=== PATIENT | female | born 1985 | race Caucasian/White ===

== ENCOUNTER 2016-07-20 10:46 | Outpatient (CLI) | payer BC ==
[~2016-07-20] VITALS: Ht 152.4 cm; Wt 66.0 kg
--- NOTE | 2016-07-20 12:39 | DIAGNOSTIC IMAGING REPORT ---
Limited ultrasound LIMITED (US) CLINICAL HISTORY: dilated at 34 weeks TECHNIQUE: Ultrasound COMPARISON STUDY: None FINDINGS: Single, viable intrauterine . Placenta is posterior. Amniotic fluid and neck 14 cm. Position is cephalic. Maternal cervix is 2.2 cm. IMPRESSION: 1. Maternal cervix is closed and measures 2.2 cm maximum length. 2. Single, viable intrauterine in cephalic presentation. 3. Amniotic fluid index 14 cm Electronically signed by: Tom Robledo M.D. 07/20/2016 12:37 PM Dictated Date/Time: 07/20/2016 12:27 PM
[2016-07-20] MEDS ORDERED: LACTATED RINGER'S 1000ML 500 ML IV ONE (14:39)
[2016-07-20] MEDS ORDERED: TERBUTALINE SULFATE 1 MG/ML VIAL SQ STA (14:39)
[2016-07-20] MEDS ORDERED: BETAMETH SOD PHOS/ACETATE IA 6 MG/ML IM STA (14:39)
--- NOTE | 2016-07-20 14:45 | Progress Note ---
Progress Note Date of Service Jul 20, 2016. Progress Note Patient still having contractions every 4 minutes. Cervix still 1cm/thick/-2. T Cat 1. Will start IV hydration, steroids and Brethine.
[2016-07-20 15:45] VITALS: Ht 152.4 cm; Wt 66.0 kg
[2016-07-20] MEDS ORDERED: SERT50TA PO (15:49)
[2016-07-20] MEDS ORDERED: PREN1TAB29 (15:49)
[2016-07-20] MEDS: LACTATED RINGER'S 1000ML 1,000 ML IV SCH ×2 (16:05→17:02)
[2016-07-20] MEDS ORDERED: TERBUTALINE SULFATE 1 MG/ML VIAL SQ ONE (17:00)
--- NOTE | 2016-07-20 19:03 | Progress Note ---
Progress Note Date of Service Jul 20, 2016. Progress Note No further contractions after second dose of Brethine. No contractions on monitor. FHT Cat 1. Will discharge home. Follow up tomorrow for second dose of steroids. Patient to instructed to call our office in AM for follow up.
[2016-08-28] MEDS ORDERED: CLC100 PO (09:24)
== END 2016-07-20 19:23 | disposition home or self-care (01) ==
LOC: C.OPB 10:46 → C.LD 10:47 → C.OPB 19:23
PROVIDERS: ATTEND Obstetrics & Gynecology
DX: O62.9 Abnormality of forces of labor, unspecified (principal); Z3A.34 34 weeks gestation of pregnancy

== ENCOUNTER 2016-08-26 14:05 | Inpatient (IN) | payer BC ==
[~2016-08-26] VITALS: Ht 152.4 cm; Wt 68.0 kg
[~2016-08-26 14:05] MED LIST: PREN1TAB29; SERT50TA PO
[2016-08-26] MEDS ORDERED: LACTATED RINGER'S 1000ML 1,000 ML IV SCH ×2 (14:40→20:27)
[2016-08-26] MEDS ORDERED: LACTATED RINGER'S 1000ML 1,000 ML IV PRN (14:40)
[2016-08-26] MEDS ORDERED: ALBUTEROL HFA 8 GM INHALER INH PRN (15:00)
[2016-08-26] MEDS ORDERED: VANCOMYCIN INJ 1,000 MG in SODIUM CHLORIDE 0.9% 250ML 250 ML IV PRN ×2 (15:00→22:57)
[2016-08-26] MEDS ORDERED: VANCOMYCIN INJ 1,000 MG in SODIUM CHLORIDE 0.9% 250ML 250 ML IV ONE (15:00)
[2016-08-26 15:15] LABS: HEMATOCRIT 40.6 % (37-47); MEAN CELL VOLUME 85.8 fL (80-100); MEAN CORPUSCULAR HEMOGLOBIN 29.2 pg (25-34); MEAN PLATELET VOLUME 9.5 fL (7.4-10.4); PLATELET COUNT 175 K/uL (130-400); RED BLOOD COUNT 4.73 M/uL (4.2-5.4); WHITE BLOOD COUNT 11.06 K/uL (4.8-10.8)
--- NOTE | 2016-08-26 15:44 | HISTORY & PHYSICAL EXAMINATION ---
DATE OF ADMISSION: 08/26/2016 LABOR AND DELIVERY ADMISSION NOTE CHIEF COMPLAINT: Contractions. HISTORY OF PRESENT ILLNESS: The patient is a 31-year-old G2, P1-0-0-1 at 39 weeks and 3 days of gestation, who has been feeling contractions since last night. They got closer and regular since 11:00 a.m. this morning. She is very painful and asking for epidural for pain. She denies leakage of fluid or vaginal bleeding. She reports good movements. She denies any headache, change in her vision, nausea, vomiting, fever, chills, chest pain, or shortness of breath. She is being admitted for labor. Her has been uncomplicated except: 1. History of anxiety. She is on Zoloft and stable. 2. History of labor with her first and she delivered full term at 12 years ago. She had MFM referral in second trimester and her cervical length was normal. 3. Rh negative. She had RhoGAM at 28 weeks. 4. History of placenta previa in second trimester, which resolved with repeat ultrasound. 5. Gestational diabetes, GDMA1. Glucose under control with diet only. 6. GBS positive. PENICILLIN ALLERGIC. 7. History of asthma. She has been on Singulair every day. She has not used her inhaler during this . 8. History of chronic migraines. 9. History of spine fractures. PAST MEDICAL HISTORY: As above. PAST SURGICAL HISTORY: Arm surgery, wrist surgery for a broken arm, excision of lipoma in mid back, nasoseptal surgery, and sinus surgery. MEDICATIONS: vitamins, Benadryl 25 mg as needed for allergies, Singulair 10 mg daily, albuterol inhaler as needed, Symbicort inhaler as needed, Zoloft 50 mg daily, and vitamins with iron. ALLERGIES: PENICILLIN CAUSES EDEMA OF AIRWAY, FISH ALLERGY, LATEX ALLERGY AND SHELLFISH ALLERGY. SOCIAL HISTORY: The patient denies smoking, alcohol or drug use. GYNECOLOGIC HISTORY: The patient denies any history of STDs including chlamydia, gonorrhea, or herpes. She had full term spontaneous vaginal delivery in 2003. LABORATORY DATA: Her blood type is B negative, antibody screen negative, hepatitis B surface antigen negative, RPR nonreactive, rubella titer positive immune. GC chlamydia cultures were negative. Glucola was 213 mg per deciliter and 3-hour 219 mg/dl was deferred due to elevated 1-hour Glucola. GBS culture was positive on August 03. PHYSICAL EXAMINATION: GENERAL: The patient is alert and oriented x3. She is in moderate distress with contractions. VITAL SIGNS: Her blood pressure is 128/80, temperature 98, pulse 80, and respirations 18. CARDIOVASCULAR SYSTEM: S1 and S2, RRR. LUNGS: Clear to auscultation bilaterally. ABDOMEN: Soft, nontender, and gravid. Jorge Luis's 7 to 7-1/2 pounds. EXTREMITIES: Nontender. No edema. PELVIC: Cervix is 5 cm dilated, 70% effaced, -2, vertex. heart rate 140s, category 1 and tocometer contractions every 3-5 minutes. ASSESSMENT AND PLAN: The patient is a 31-year-old G2, P1-0-0-1 at 39 weeks and 3 days of gestation presenting in active labor with contractions. Vital signs stable, afebrile. heart rate reassuring. GBS positive. Plan is admit her, start IV fluids, epidural for pain and vancomycin for GBS and anticipate spontaneous vaginal delivery. MTDD
[2016-08-26] MEDS ORDERED: BUPIVACAINE 0.25% 30 ML VIAL ONE (15:53)
[2016-08-26] MEDS ORDERED: FENTANYL CITRATE INJ 50 MCG/1 ML 2 ML VIAL ONE (15:54)
[2016-08-26] MEDS ORDERED: FENTANYL 2MCG/ML ROPIV 1.25MG/ML 100ML BAG EPI ONE (15:54)
[2016-08-26] MEDS ORDERED: EpHEDrine SULFATE INJ 50 MG/ML AMP ONE (15:54)
[2016-08-26] MEDS ORDERED: LACTATED RINGER'S 1000ML 500 ML IV PRN ×2 (17:01→18:29)
[2016-08-26] MEDS ORDERED: NALOXONE HCL INJ 1 MG in SODIUM CHLORIDE 0.9% 1000ML 1,000 ML IV PRN (17:01)
[2016-08-26] MEDS ORDERED: NALOXONE HCL INJ 0.4 MG/1 ML VIAL/CARP IV PRN (17:15)
[2016-08-26] MEDS ORDERED: FENTANYL 2MCG/ML ROPIV 1.25MG/ML 100ML BAG EPI PRN ×2 (17:15→21:15)
[2016-08-26] MEDS ORDERED: EpHEDrine SULFATE INJ 50 MG/ML AMP IV PRN (17:15)
[2016-08-26] MEDS ORDERED: ONDANSETRON INJ 2 MG/ML 2 ML VIAL IV PRN (17:15)
[2016-08-26] MEDS ORDERED: NALBUPHINE HCL INJ 10 MG/ML AMP IV PRN (17:15)
[2016-08-26] MEDS ORDERED: DiphenhydrAMINE HCL 50 MG/ML VIAL IV PRN (17:15)
[2016-08-26 17:50] VITALS: Ht 152.4 cm; Wt 68.0 kg
[2016-08-26] MEDS ORDERED: OXYTOCIN 30 UNITS/500ML NSS IV ONE (17:51)
[2016-08-26] MEDS ORDERED: OXYTOCIN 30 UNITS/500ML NSS IV PRN ×2 (18:30→20:30)
[2016-08-26] MEDS ORDERED: HYDROCORTISONE ACETATE 25 MG SUPP PR PRN (20:30)
[2016-08-26] MEDS ORDERED: BENZOCAINE 20% AER SPR 82.5 GM CAN EXT PRN (20:30)
[2016-08-26] MEDS ORDERED: DIPHTHERIA/TETANUS/PERTUSSIS 0.5 ML SYR/VIAL IM. ONE (20:30)
[2016-08-26] MEDS ORDERED: SUPERCREAM 0.870 % 15GM JAR EXT PRN (20:30)
[2016-08-26] MEDS ORDERED: ACETAMINOPHEN/CODEINE 300/30MG TAB PO PRN ×2 (20:30)
[2016-08-26] MEDS ORDERED: LANOLIN OINT EXT PRN ×2 (20:30)
[2016-08-26] MEDS ORDERED: MEASLES, MUMPS & RUBELLA VIRUS VIAL SQ. ONE (20:30)
[2016-08-26] MEDS ORDERED: MISOPROSTOL 200 MCG TAB ONE (20:37)
--- NOTE | 2016-08-26 21:06 | Anesthesia Procedure Note ---
Anesthesia Epidural Removal Nt Date & Time August 26, 2016 at 21:06 Vital Signs Pain Intensity: 2 Notes Mental Status: alert / awake / arousable, participated in evaluation Nausea / Vomiting: adequately controlled Pain: adequately controlled Airway Patency, RR, SpO2: stable & adequate BP & HR: stable & adequate Hydration State: stable & adequate Neuraxial Anesthesia: was administered Anesthetic Complications: no major complications apparent, pt satisfied with anesthetic care Epidural: removed without complications, with tip intact
[2016-08-26] MEDS ORDERED: MONTELUKAST SOD 10 MG TAB PO SCH (22:00)
[2016-08-26] MEDS ORDERED: SERTRALINE HCL 50 MG TAB PO SCH (22:00)
[2016-08-26 23:45] VITALS: BP 118/76; PULSE 99; TEMP 37.6
[2016-08-27] MEDS: IBUPROFEN 600 MG TAB PO PRN ×3 (01:56→19:35)
[2016-08-27 04:15] VITALS: BP 105/67; PULSE 82; TEMP 36.5
[2016-08-27 06:54] LABS: HEMATOCRIT 27.3 % (37-47)
[2016-08-27 07:15] VITALS: BP 109/66; PULSE 81; TEMP 36.8
[2016-08-27] MEDS: FERROUS SULFATE 325 MG TAB PO SCH (08:05)
[2016-08-27] MEDS: DOCUSATE SODIUM 100 MG CAP PO SCH ×2 (08:05→19:35)
[2016-08-27] MEDS: PRENATAL VITAMIN TAB PO SCH (08:05)
[2016-08-27] MEDS: ACETAMINOPHEN 325 MG TAB PO PRN (08:11)
--- NOTE | 2016-08-27 08:58 | DELIVERY SUMMARY ---
DATE OF OPERATION: 08/26/2016 TIME OF DELIVERY OF BABY: 19:55 p.m. TIME OF DELIVERY OF PLACENTA: 20:32 p.m. DETAILS OF DELIVERY: The patient was found to be fully dilated and desired to push. She pushed for 2 contractions and delivered the head without difficulty. Shoulders were delivered with the same push and baby was handed off to the mother, where mouth and nose were suctioned. Cord was clamped x2 and cut at 1 minute delay, it was 3 vessels cord. Cord blood was obtained. Vagina and perineum were checked for lacerations. There was a second degree perineal laceration at the posterior fourchette which was confirmed with rectal exam. Gloves were changed and perineal body muscle around the external sphincter was reapproximated with 2-0 Vicryl with gflswe-td-euhby stitches x2. The vaginal mucosa and bulbocavernosus muscles were reapproximated with 2-0 Vicryl in running fashion and skin in a subcuticular fashion. Good hemostasis was achieved. There was also a first degree periclitoral laceration where the labial mucosa was oozing minimal blood A maxwell catheter was inserted to the bladder. It was repaired with 3-0 Vicryl on an SH needle in a continuous fashion. Good hemostasis was achieved and there was superficial left vaginal wall laceration which was also repaired with 3-0 Vicryl with iibyny-wx-rrisz stitch. Good hemostasis was achieved, and then we awaited for the placenta for about half an hour, started Pitocin IV running, and then placenta was found to be in lower uterine segment. It was delivered spontaneously with the patient pushing as intact and complete at 08:32 p.m. The uterus was explored and found to be empty. Lower segment was cleared of all clots and debris. Fundus was firm. There was a bright red bleeding from vagina. Two Zhu retractors were placed in the vagina. Cervix was visualized and grasped with ring forceps. It was checked circumferentially to be intact with no lacerations , and then patient was given IV Pitocin bolus as well as 800 mcg of misoprostol in the rectum. Then bleeding slowed down. EBL was 300. The gloves were changed. Rest of the vagina and perineum checked for lacerations, some of the repair from prior were oozing on the periclitoral as well as the perineum. They were controlled with egohzh-wd-uewth stitches. Excellent hemostasis was achieved. she tolerated the procedure well. Sponge, lap, needle and instruments were counts were correct x2. The baby was a viable male , Apgars 7/9 and weight is 2916 gr. The mother had temperature after all the procedure was complete. She was on Vancomycin due to GBS positive status. Decision was made to continue with antibiotic due GBS status as well as long 3rd stage of labor and repair. I was present during whole procedure. I attest to the content of the Intraoperative Record and any orders documented therein. Any exceptions are noted below. MTDD
[2016-08-27 11:50] VITALS: BP 105/66; PULSE 77; TEMP 36.7
--- NOTE | 2016-08-27 12:08 | OB/GYN Progress Note ---
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 Subjective conversation w/ patient, physical exam Ambulation: ambulating normally Voiding: no voiding problems Passing Gas: Yes Diet Tolerance: Regular Diet Lochia: Small Feeding Type: Breast Feeding Objective Vital Signs Date Time Temp Pulse Resp B/P Pulse Ox O2 Delivery O2 Flow Rate FiO2 08/27/16 07:15 36.8 81 20 109/66 Room Air 08/27/16 07:15 Room Air 08/27/16 04:15 36.5 82 18 105/67 Room Air 08/27/16 00:40 Room Air 08/26/16 23:45 37.6 99 18 118/76 Room Air Physical Exam General Appearance: WELL-APPEARING, NO APPARENT DISTRESS Abdomen: non tender, soft Fundus: Firm Extremities: non-tender, normal inspection, no pedal edema Laboratory Results Last 24 Hours Test 08/26/16 15:01 08/27/16 06:08 White Blood Count 11.06 K/uL Red Blood Count 4.73 M/uL Hemoglobin 13.8 g/dL 9.1 g/dL Hematocrit 40.6 % 27.3 % Mean Corpuscular Volume 85.8 fL Mean Corpuscular Hemoglobin 29.2 pg Mean Corpuscular Hemoglobin Concent 34.0 g/dl RDW Standard Deviation 45.2 fL RDW Coefficient of Variation 14.3 % Platelet Count 175 K/uL Mean Platelet Volume 9.5 fL Assessment and Plan Post- Day Number: 1 Continue Routine Care: tent d/c in AM
[2016-08-27 17:00] VITALS: BP 120/76; PULSE 76; TEMP 36.7
[2016-08-27 19:25] VITALS: BP 110/70; PULSE 88; TEMP 36.6
[2016-08-27] MEDS ORDERED: BISACODYL 5 MG TABEC PO SCH (20:00)
[2016-08-28 00:44] VITALS: BP 116/78; PULSE 75; TEMP 36.6
[2016-08-28] MEDS ORDERED: BISACODYL 10 MG SUPP PR PRN (07:00)
[2016-08-28 07:10] LABS: HEMATOCRIT 30.3 % (37-47); MEAN CELL VOLUME 86.1 fL (80-100); MEAN CORPUSCULAR HEMOGLOBIN 28.1 pg (25-34); MEAN CORPUSCULAR HGB CONC 32.7 g/dl (32-36); MEAN PLATELET VOLUME 8.7 fL (7.4-10.4); PLATELET COUNT 188 K/uL (130-400); RED BLOOD COUNT 3.52 M/uL (4.2-5.4)
[2016-08-28] MEDS: PRENATAL VITAMIN TAB PO SCH (07:34)
[2016-08-28] MEDS: FERROUS SULFATE 325 MG TAB PO SCH (07:34)
[2016-08-28] MEDS: DOCUSATE SODIUM 100 MG CAP PO SCH (07:34)
[2016-08-28] MEDS: IBUPROFEN 600 MG TAB PO PRN (07:35)
[2016-08-28 07:40] VITALS: BP 124/85; PULSE 83; TEMP 36.4; O2SAT 99
--- NOTE | 2016-08-28 09:22 | OB/GYN Progress Note ---
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 Patient is seen and examined. She feels well, no complaints, just tired Ambulating without dizziness Voiding without difficulty Tolerating regular diet with out N&V Flatus+, BM small Bleeding is minimal No fever/ chills/ CP/ SOB/ N&V/ Leg pain Breast feeding without problems Discussed contraception with patient in details. Abstinence for 6 weeks, BCP, progestin only pills, Nexplanon, IUD's, Mirena and Paragard. She likes to decide at 6 weeks pp visit She was continued on Vanco after delivery due to fever, retained placenta, long vaginal repair, maxwell in. Explained all above and she understands and appreciated. Date Time Temp Pulse Resp B/P Pulse Ox O2 Delivery O2 Flow Rate FiO2 08/28/16 07:40 36.4 83 16 124/85 99 Room Air 08/28/16 00:46 Room Air 08/28/16 00:44 36.6 75 116/78 Room Air 08/27/16 19:25 36.6 88 18 110/70 Room Air 08/27/16 17:00 36.7 76 18 120/76 Room Air 08/27/16 17:00 Room Air 08/27/16 11:50 36.7 77 20 105/66 Room Air Last 24 Hours Test 08/28/16 07:00 White Blood Count 12.40 K/uL Red Blood Count 3.52 M/uL Hemoglobin 9.9 g/dL Hematocrit 30.3 % Mean Corpuscular Volume 86.1 fL Mean Corpuscular Hemoglobin 28.1 pg Mean Corpuscular Hemoglobin Concent 32.7 g/dl RDW Standard Deviation 45.6 fL RDW Coefficient of Variation 14.7 % Platelet Count 188 K/uL Mean Platelet Volume 8.7 fL PE: General: Alert, orientedx3, NAD Abd: soft, NT, fundus firm, below Umbilicus Perineum intact, Lochia rubra minimal Ext; NT, no edema AP: 31 yo s/p , ppd# 2 VSS Afebrile doing well GBS+ Continue routine care All questions were answered D/C home with baby
[2016-08-28] MEDS ORDERED: CLC100 PO (09:24)
--- NOTE | 2016-08-28 09:28 | Discharge Instructions ---
Discharge Instructions Date of Service August 28, 2016. Admission Reason for Admission: R/O Labor Discharge Discharge Diagnosis / Problem: Discharge Goals Goal(s): Routine recovery after delivery Medications Continue Dispensed Medications: supercream, lansinoh Activity Recommendations Activity Limitations: as noted below Lifting Limitations: gradually increase as tolerated Exercise/Sports Limitations: until after follow-up appointment May Resume Sexual Activity: after follow-up appointment Shower/Bathe: no limitations Driving or Machine Use: ACTIVITY RECOMMENDATIONS: * Gradual return to full activity over the next 2-3 weeks. * No lifting - nothing heavier than baby over the next 2-3 weeks. * Do not engage in vigorous exercise, sexual activity or sports until cleared by your physician. * Do not drive or operate any motorized equipment until cleared by your physician. * You may shower/bathe daily. BREAST CARE: If you are not breast feeding: * Wear a supportive bra 24 hours a day for one to two weeks. * Avoid stimulating your breasts and nipples as much as possible during the first few weeks after delivery. * When taking a shower, have the warm water hit your back, not breasts. * When your breasts feel full, apply ice packs. Usually three to four times a day helps ease the discomfort. * Take a mild pain medication (Tylenol/Motrin) when you are uncomfortable. If breast feeding: * Use breast milk to lubricate nipples. Lansinoh cream may be used for sore nipples. You do not need to remove cream prior to breast feeding. If using a different brand of cream, check the label for directions regarding removal of cream prior to nursing. * Wear a supportive bra. * If having problems with breasts or breast feeding, call a php consultant or your health care provider. EPISIOTOMY CARE: After delivery, if you have an episiotomy (stitches), the following steps will ease discomfort and aid healing. * For the first 24 hours after delivery, place ice packs next to your episiotomy to help reduce swelling. * After the first 24 hour-period, sitz baths, either portable or in the tub, are suggested. A shower with a shower arm sprayed over the episiotomy may be comforting. * [place]ette care should be done after each voiding and bowel movement. Squirt warm water from a plastic bottle over the perineum (region of the body between the anus and urinary opening) and pat dry. * Use Dermoplast to ease discomfort. Shake container. [place] directly over the episiotomy. * Place a Tucks on a clean sanitary pad next to your episiotomy. OVER THE COUNTER MEDICATION: * For discomfort or pain, you may use Acetaminophen (Tylenol), Ibuprofen (Advil ), or Naproxen (Aleve) following the package directions. * For constipation you may use Colace following the package directions. SPECIAL CARE INSTRUCTIONS: When you are discharged from the hospital, it is important for you to follow the instructions listed below: * During the first week at home, you should be able to care for yourself and your baby. In addition, the usual light household activities are encouraged. * Limit your activities to the way you feel. Do not try to clean the house or move furniture. Be sensible. * If you actively engage in sports and have done so up until the time of your delivery, you may resume these activities as soon as you feel able. This may take up to one month or even longer. Use good judgment. * Continue to take your vitamins for at least six weeks after the of your baby. * Your diet need not be limited unless you were on a special diet before your delivery. Breast-feeding mothers need around 2500 calories per day and at least 64-80 ounces of fluid per day (8 to 10 glasses). * You should eat foods from the four major food groups. Crash diets or fad diets are to be avoided. Eating lean meats, fresh fruits and vegetables, low-fat dairy products, high fiber foods and a regular exercise program, will help you get back to your pre- weight without putting your health at risk. * Constipation is sometimes a problem after delivery. Take a mild laxative as needed. If breast feeding, Milk of Magnesia is acceptable to use. You may use a suppository or Fleets enema if no episiotomy. * A daily shower or tub bath is suggested. Be sure to thoroughly and gently dry the perineum. * A bloody vaginal discharge will usually continue until around four weeks post . A small amount of bleeding may continue for as long as six weeks. Vaginal discharge changes from the bright red bleeding after delivery to pink then brownish and finally yellowish-pink before becoming white and disappearing. * Bleeding may increase with activity. Your first period may come in 4-8 weeks. If you are breast feeding, your period may be delayed even longer. * [place] (sex) can begin whenever both you and your partner feel comfortable and do not have any form of genital infection. It is recommended that you wait until after your return appointment and discuss with your physician. If you have questions, please talk to your health care practitioner. A condom should be used to prevent infection and . * Foreplay, gentle intercourse and lubrication is very important the first several times to prevent pain. A water-based lubricant such as K-Y jelly or Astroglide may be used. * Tampons may be used six weeks after delivery. * Douching should be avoided for 6 weeks after delivery. * If you have RH negative blood and your baby is RH positive, you will receive RHOGAM by injection prior to discharge. The nurse will give you a card to keep with you that has the date and place that you received RHOGAM after delivery. * During your care, you had a Rubella screen done to check for the presence of rubella antibodies in your blood. If your test was negative, you will receive a Rubella vaccine prior to discharge. This vaccine may cause a fever, soreness at the injection site and flu-like symptoms. If these symptoms persist, notify your health care practitioner. is not advised for three months after a Rubella vaccine. There is a higher chance of having a baby with defects if conceived within three months of getting the vaccine. * If you were discharged 24 hours from delivery or before 48 hours: Visiting nurses will come to your home 48 hours after discharge to assess you and your baby. The visiting nurse will meet with you while you are in the hospital to arrange a time and get directions to your home. * Verbalizes understanding of car seat law as reviewed with patient nursing. * Car Seat hand-out given and reviewed with patient by nursing. * Shaken baby information reviewed with patient by nursing. Call you doctor if: * Heavy bleeding (saturating several pads an hour) or passing clots the size of your fist. * A fever >101 degrees F (38.3 degrees C) on two occasions four hours apart and/or chills. * Unusual pain in the pelvic or vaginal areas. * "Baby Blues" lasting longer than two weeks. If you have any questions or concerns, call your health care practitioner at . FOLLOW-UP VISIT: * Please call the office at to schedule a 6 week examination. It is important you keep this appointment. * It is important for you to make arrangements for either yearly or twice yearly check-ups thereafter. . Current Hospital Diet Patient's current hospital diet: Regular OB Diet Discharge Diet Recommended Diet: Regular Diet Pending Studies Studies pending at discharge: no Medical Emergencies . Who to Call and When: Medical Emergencies: If at any time you feel your situation is an emergency, please call 911 immediately. . Non-Emergent Contact Non-Emergency issues call your: Surgeon Call Non-Emergent contact if: you have a fever, temperature is above 100.5, your pain is not controlled, your pain is unusual for you, wound has increased drainage, wound has increased pain . . "Provider Documentation" section prepared by Syed Goyal. . VTE Core Measure Inpt VTE Proph given/why not?: Treatment not indicated
[2016-08-28] MEDS: ACETAMINOPHEN 325 MG TAB PO PRN (09:29)
[2016-08-28] MEDS ORDERED: MAGNESIUM HYDROXIDE SUSP 30 ML UDC PO ONE (09:30)
[2016-08-28 16:00] VITALS: BP 111/69; PULSE 84; TEMP 36.7
[2016-08-28 18:29] VITALS: BP_DIAS 69; PULSE 84; TEMP 36.7
== END 2016-08-28 18:15 | disposition home or self-care (01) | DRG 774 ==
LOC: C.OPB 14:05 → C.LD 14:05 → C.OPB 14:41 → C.LD 14:41 → C.OBG 23:35 → EDSTATUS 08-30 14:15
PROVIDERS: ADMIT Obstetrics & Gynecology; ATTEND Obstetrics & Gynecology
PROC: 10E0XZZ Delivery of Products of Conception, External Approach (ICD-10-PCS; principal; 2016-08-26)
PROC: 0UQMXZZ Repair Vulva, External Approach (ICD-10-PCS; principal; 2016-08-26)
PROC: 0KQM0ZZ Repair Perineum Muscle, Open Approach (ICD-10-PCS; principal; 2016-08-26)
DX: O24.420 Gestational diabetes mellitus in childbirth, diet controlled (principal); O67.9 Intrapartum hemorrhage, unspecified; O86.4 Pyrexia of unknown origin following delivery; O99.354 Diseases of the nervous system complicating childbirth; G43.909 Migraine, unspecified, not intractable, without status migrainosus; O70.1 Second degree perineal laceration during delivery; O99.344 Other mental disorders complicating childbirth; F41.9 Anxiety disorder, unspecified; O99.824 Streptococcus B carrier state complicating childbirth; O99.52 Diseases of the respiratory system complicating childbirth; J45.909 Unspecified asthma, uncomplicated; Z37.0 Single live birth; Z88.0 Allergy status to penicillin; Z3A.39 39 weeks gestation of pregnancy; Z91.040 Latex allergy status; Z67.91 Unspecified blood type, Rh negative; Z79.51 Long term (current) use of inhaled steroids; Z79.899 Other long term (current) drug therapy

== ENCOUNTER 2017-06-06 19:05 | Emergency (ER) | payer BC, OTHER ==
[~2017-06-06] VITALS: Ht 152.4 cm; Wt 58.6 kg
[~2017-06-06 19:05] MED LIST changes: +CLC100 PO
[2017-06-06 19:12] VITALS: TEMP 37; Ht 152.4 cm; Wt 58.6 kg
[2017-06-06] MEDS ORDERED: SODIUM CHLORIDE 0.9% 1000ML 1,000 ML IV STA (19:32)
[2017-06-06] MEDS ORDERED: ONDANSETRON INJ 2 MG/ML 2 ML VIAL IV STA (19:32)
--- NOTE | 2017-06-06 19:48 | EMERGENCY ROOM VISIT NOTE ---
History Report prepared by Sravanthi: Benita Cat Under the Supervision of: Dr. Jonathan Crockett M.D. First contact with patient: 19:15 Chief Complaint: HYPERGLYCEMIA Stated Complaint: BLOOD SUGAR OVER 400. VERY THIRSTY ALL THE TIME Nursing Triage Summary: reports BSG over 400. Not currently being treated for DM. States was gestational diabetic 1 yr ago but resolved. mother and sister diabetic. has had excessive thirst and urination past few days. History of Present Illness The patient is a 32 year old female who presents to the Emergency Room with complaints of increasing blood sugar beginning this evening around 5pm, two and a half hours ago. The patient took her blood sugar at 6 pm, an hour and a half ago, and it was 406. She then took it again and it was 415. Upon arrival to the ED, the patient's blood sugar was 467. The patient last ate a large meal of chicken, gravy, mushrooms and rice with vanilla cake and peanut butter icing around 5pm. She reports some nausea but denies any pain. She denies any chance of . The patient has a family history of type one diabetes. The patient has a history tubal ligation, anxiety, and gestational diabetes. Source of History: patient Onset: 2 and a half hours ago Position: other (generalized) Quality: other (elevated blood sugar) Timing: worsening Associated Symptoms: + nausea Review of Systems See HPI for pertinent positives and negatives. A total of ten systems were reviewed and were otherwise negative. Past Medical & Surgical Medical Problems: (1) contractions (2) Uterine contractions at greater than 20 weeks of gestation Family History Diabetes mellitus Social History Smoking Status: Never Smoker Marital Status: Housing Status: lives with family Current/Historical Medications Scheduled Sertraline (Zoloft), 75 MG PO HS Allergies Coded Allergies: Latex (Verified Allergy, Intermediate, rash, swelling , redness, itchy, 06/06/17) Penicillins (Verified Allergy, Intermediate, HIVES, 06/06/17) Shellfish (Verified Allergy, Intermediate, HIVES, 06/06/17) Ciprofloxacin (Unverified Allergy, Unknown, HEAD PRESSURE, 06/06/17) Dust (Verified Allergy, Unknown, HIVES, 06/06/17) Molds and Smuts (Verified Allergy, Unknown, HIVES, 06/06/17) Physical Exam Vital Signs Date Time Temp Pulse Resp B/P (MAP) Pulse Ox O2 Delivery O2 Flow Rate FiO2 06/06/17 22:42 77 16 122/68 97 06/06/17 20:50 73 18 104/54 98 Room Air 06/06/17 19:12 37.0 79 18 127/83 97 Room Air Physical Exam Physical Exam GENERAL: She is oriented to person, place, and time. She appears well- developed and well-nourished. She does not appear distressed. ____ HENT: Exam performed. Head: Normocephalic and atraumatic. Right Ear: External ear normal. No mastoid tenderness. Left Ear: External ear normal. No mastoid tenderness. Mouth/Throat: The oropharynx is clear and moist. No trismus in the jaw. No dental abscesses or uvula swelling. No oropharyngeal exudate or tonsillar abscesses. ____ EYES: Conjunctivae and EOM are normal. Pupils are equal, round, and reactive to light. Right eye exhibits no discharge. Left eye exhibits no discharge. No scleral icterus. ____ NECK: Normal range of motion. Neck supple. No JVD present. No spinous process tenderness present. No carotid bruit present. No rigidity. No tracheal deviation and normal range of motion present. No Brudzinski's sign and no Kernig 's sign noted. ____ CV: Normal rate, regular rhythm, normal heart sounds and intact distal pulses. There is no peripheral edema. Palpable radial pulses bue. ____ PULM/CHEST: Effort normal and breath sounds normal. No respiratory distress. No stridor. She has no wheezes. She has no rales. Chest Wall: She exhibits no tenderness. ____ ABD: The abdomen is soft. Bowel sounds are normal. She has no distension. No mass is present. There is no tenderness. There is no rebound, no guarding, no Suarez's sign and no tenderness at McBurney's point. Rovsig negative MUSC/SKEL: Normal range of motion. There is no peripheral edema, tenderness or deformity. LYMPH: No cervical adenopathy. ____ NEURO: She is alert and oriented to person, place, and time. She has normal strength. No cranial nerve deficit or sensory deficit. Coordination and gait normal. GCS eye subscore is 4. GCS verbal subscore is 5. GCS motor subscore is 6. Cerebellar tests wnl. ____ SKIN: Skin is warm and dry. She is not diaphoretic. ____ PSYCH: She has a normal mood and affect. Her behavior is normal. Judgment and thought content normal. ____ Medical Decision & Procedures Laboratory Results 06/06/17 19:47 Test 06/06/17 19:19 06/06/17 19:47 Urine Color YELLOW Urine Appearance CLEAR (CLEAR) Urine pH 7.0 (4.5-7.5) Urine Specific [place] 1.042 (1.000-1.030) Urine Protein NEG (NEG) Urine Glucose (UA) 3+ (NEG) Urine Ketones NEG (NEG) Urine Occult Blood NEG (NEG) Urine Nitrite NEG (NEG) Urine Bilirubin NEG (NEG) Urine Urobilinogen NEG (NEG) Urine Leukocyte Esterase NEG (NEG) Urine WBC (Auto) 5-10 /hpf (0-5) Urine RBC (Auto) 0-4 /hpf (0-4) Urine Hyaline Casts (Auto) 0 /lpf (0-5) Urine Epithelial Cells (Auto) 20-30 /lpf (0-5) Urine Bacteria (Auto) NEG (NEG) Urine Test NEG (NEG) Anion Gap 5.0 mmol/L (3-11) Est Creatinine Clear Calc Drug Dose 62.8 ml/min Estimated GFR () 83.3 Estimated GFR (Non- 71.9 BUN/Creatinine Ratio 7.8 (10-20) Calcium Level 8.7 mg/dl (8.5-10.1) Beta-Hydroxybutyric Acid 1.24 mg/dL (0.2-2.81) Laboratory results reviewed by me Medications Administered Medications (Trade) Dose Ordered Sig/Filipe Route Start Time Stop Time Status Last Admin Dose Admin Sodium Chloride 1,000 ml @ 999 mls/hr Q1H1M STAT IV 06/06/17 19:32 06/06/17 20:32 DC 06/06/17 20:02 999 MLS/HR Ondansetron HCl (Zofran Inj) 4 mg NOW STAT IV 06/06/17 19:32 06/06/17 19:34 DC 06/06/17 20:02 4 MG ED Course 1930: The patient was evaluated in room B9. A complete history and physical exam was performed. 1931: Ordered Zofran Inj 4 mg IV, Sodium Chloride 1000 ml @ 999 mls/hr IV. 2157: Repeat vitals stable, serial abdominal exam revealed no pain on palpation , blood sugar improved with fluids. The patient was offered more fluids but she denied and states she wants to go home. The patient was advised to avoid food with high sugar content like cake, as she ate earlier today. The patient agrees to follow up with her PCP. 2200: I reevaluated the patient. Discussed results and discharge instructions: She verbalized understanding and agreement. The patient is ready for discharge. DISCHARGE - Plan of care discussed with family and questions answered. The family was given both verbal and printed discharge instructions. The family verbalized understanding and ability to comply. The family is to seek outpatient follow up as noted in the discharge instructions. The family verbalized understanding and ability to comply. The family is discharged in stable condition. The family was instructed to return for worsening symptoms. Medical Decision serial abdominal exam revealed no pain on palpation, blood sugar improved with fluids. The patient was offered more fluids but she denied and states she wants to go home. The patient was advised to avoid food with high sugar content like cake, as she ate earlier today. The patient agrees to follow up with her PCP. Medication Reconcilliation Current Medication List: was personally reviewed by me Blood Pressure Screening Patient's blood pressure: Normal blood pressure Impression Primary Impression: Hyperglycemia Scribe Attestation The scribe's documentation has been prepared under my direction and personally reviewed by me in its entirety. I confirm that the note above accurately reflects all work, treatment, procedures, and medical decision making performed by me. The chart was completed utilizing [employer] voice recognition software. Grammatical errors, random word insertions, pronoun errors, and incomplete sentences are an occasional consequence of this system due to software limitations, ambient noise, and hardware issues. Any formal questions or concerns about the content, text, or information contained within the body of this dictation should be directly addressed to the physician for clarification. Departure Information Dispostion Home / Self-Care Referrals Jean Marie Drake M.D. (PCP) Forms HOME CARE DOCUMENTATION FORM, IMPORTANT VISIT INFORMATION, WORK / SCHOOL INSTRUCTIONS Patient Instructions Hyperglycemia, Hyperglycemia Steps, My [facility] Additional Instructions Avoid eating foods with high amounts of sugar such as desserts like cake. Return to the emergency department if he developed fever greater than 100.4, blood in her vomit.
[2017-06-06 20:18] LABS: CALCIUM 8.7 mg/dl (8.5-10.1); CREATININE 1.03 mg/dl (0.60-1.20); POTASSIUM 4.1 mmol/L (3.5-5.1)
[2017-06-06 22:42] VITALS: BP 122/68; PULSE 77; O2SAT 97
== END 2017-06-06 22:43 | disposition home or self-care (01) ==
LOC: C.EDB 19:05
DX: R73.9 Hyperglycemia, unspecified (principal); F41.9 Anxiety disorder, unspecified; Z98.51 Tubal ligation status; Z86.32 Personal history of gestational diabetes; Z87.51 Personal history of pre-term labor; Z83.3 Family history of diabetes mellitus; Z91.040 Latex allergy status; Z88.0 Allergy status to penicillin; Z91.013 Allergy to seafood; Z88.1 Allergy status to other antibiotic agents; Z91.048 Other nonmedicinal substance allergy status

== ENCOUNTER 2023-02-12 19:03 | Inpatient (IN) ==
[2023-02-12 20:00] LABS: Basophils # (auto) 0.05 K/uL (0.00-0.20); Basophils % (auto) 0.3 %; Eosinophils # (auto) 0.09 K/uL (0.00-0.50); Eosinophils % (auto) 0.6 %; Hematocrit (blood only) 42.9 % (37.0-47.0); Hemoglobin 14.3 g/dl (12.0-16.0); Immature Granulocytes # (auto) 0.27 K/uL (0.01-0.20); Immature Granulocytes % (auto) 1.8 %; Lymphocytes # (auto) 1.71 K/uL (1.20-3.40); Lymphocytes % (auto) 11.6 %; Mean Corpuscular Hemoglobin 27.8 pg (25.0-34.0); Mean Corpuscular Hgb Conc 33.3 g/dL (32.0-36.0); Mean Corpuscular Volume 83.5 fL (80.0-100.0); Mean Platelet Volume 9.2 fL (9.4-12.4); Monocytes # (auto) 0.39 K/uL (0.11-0.59); Monocytes % (auto) 2.6 %; Neutrophils # (auto) 12.23 K/uL (1.40-6.50); Neutrophils % (auto) 83.1 %; Platelet Count 377 K/uL (130-400); RDW Coefficient of Variation 13.1 % (11.5-14.5); Red Blood Count 5.14 M/uL (4.20-5.40); White Blood Count 14.74 K/ul (4.8-10.8)
[2023-02-12] MEDS ORDERED: ONDANSETRON 4 MG OD TAB PO PRN (20:01)
[2023-02-12 20:34] LABS: Albumin Globulin Ratio 1.3 (0.9-2); Albumin Level 4.4 gm/dl (3.4-5.0); Bilirubin,Total 0.5 mg/dl (0.2-1.0); Calcium 9.7 mg/dl (8.6-10.3); Creatinine Clr Calc Pharmacy 82.9 ml/min; Est GFR (African American) 114.3 ml/min; Est GFR (Non-African American) 98.6 ml/min; Globulin 3.5 gm/dl (2.5-4.0); Potassium 3.9 mmol/L (3.5-5.1); Total Protein 7.9 gm/dl (6.0-8.3)
--- NOTE | 2023-02-12 23:37 | Emergency Department Note ---
Impression & Plan Dental abscess, Diabetes mellitus type 1 ED Provider Note CHIEF COMPLAINT: Dental pain HISTORY OF PRESENTING ILLNESS: This 37-year-old female patient presents to the emergency department with her for evaluation of dental pain on the right side as well as right-sided facial swelling. On 01/17/23 she started with dental pain that felt like an abscessed tooth. She had an appointment with her dentist, but it had to be cancelled because the dentist's went into labor. She then saw her PCP on 01/22/23 and she was started on Clindamycin. She saw the dentist on 01/25/23 that confirmed an abscess and that she would need a root canal. She had an appointment with the utility tender carding on 02/05/23 and he did the root canals, but there was only a small infection at that time. However, by 02/07/23 she had developed a lot more pain. She called the utility tender carding on 02/08/23 and was started on a higher dose of oral clindamycin. She started with facial swelling and increased pain again on 02/09/23 and went back to the utility tender carding who said it was too difficult to drain at that time and she was started on a medrol dose bladimir. The steroid helped a little for the first day, but then got worse again. She was advised to stop all NSAIDs with the steroids and she was started on Vicodin. Today the symptoms got worse and she went back to the utility tender carding who drained the abscess, but she is still having continued pain, facial swelling, and dysregulation of her blood sugars. She is a Type I diabetic and has a Dexcom in place. Her blood sugars keep getting very high and then dropping pretty quickly. She was referred to the emergency department for IV Rocephin since she has been on oral clindamycin at home without improvement. She rates her discomfort as 7/10. She has been seeing Dr. Powell of [facility]. REVIEW OF SYSTEMS: See HPI for pertinent positives and pertinent negatives. ALLERGIES: Latex, PCN, shellfish, Cipro, Mold, Dust - Has had IV contrast in the past with no problems MEDICATIONS: See below PAST MEDICAL HISTORY: See below PHYSICAL EXAM: VITALS: Vitals are noted on the nurse's note and reviewed by myself. GENERAL: Non toxic, no acute distress, non-diaphoretic. SKIN: The patient has edema and mild erythema to the right side of the face worse in the zygomatic area. No fluctuance, pointing, or discharge. No lymphatic streaking. Capillary refill <2 sec. EYES: PERRLA. EOMI without pain. Conjunctivae without injection, sclerae without icterus. NOSE: Patent without discharge. MOUTH: The patient has edema of the right upper gumline with ecchymosis in the area of the previous abscess drainage. There is no obvious fluctuance to drain at this time. No active discharge. Mucous membranes moist. Uvula midline. Airway patent. NECK: Supple without nuchal rigidity. Positive anterior cervical lymphadenopathy worse on the right. HEART: Regular rate and rhythm without murmurs gallops or rubs. LUNGS: Clear to auscultation bilaterally without wheezes, rales or rhonchi. No retractions or accessory muscle use. NEURO: Patient was alert and oriented. Normal sensation to light and sharp touch of the face. No focal neurological deficits. DIFFERENTIAL DIAGNOSIS: Differential diagnosis includes dental caries, periapical abscess, facial cellulitis, facial abscess, Mic's angina, pharyngitis, referred pain, sepsis, bacteremia, among others. ED COURSE AND MEDICAL DECISION MAKING: MONITOR: Continuous monitoring tech: Order was placed for continuous monitoring tech. Patient was placed on the monitoring tech and continuous pulse ox. Patient was noted to be in normal sinus rhythm at an initial rate of 90 bpm per my interpretation. EKG: EKG was interpreted by myself as normal sinus rhythm at 89 bpm with no acute ST or T wave changes and no significant changes compared to her previous EKG.. MEDICATIONS GIVEN: Patient was given Zofran 4 mg ODT in triage, but vomited this up immediately per patient. She was given Toradol 15 mg IV and Zofran 4 mg IV for pain. An order for Reglan 10 mg IV was placed due to continued nausea, but then the patient declined the medication because her symptoms improved. The patient was given Rocephin 2 g IV. She was also started on D5 normal saline solution at 125 mL/h. INTERPRETATION OF LABS: I interpreted the labs with full lab results as below in the lab section of this note. White blood cell count elevated at 14.74. Hemoglobin normal at 14.3. Platelet count normal at 377. CMP was essentially normal other than a glucose of 308. Lactate was normal. Blood cultures are pending. The patient's Dexcom showed her blood sugars drop down into the 70s. Since she is unable to eat or drink until CT scan results are obtained, she was started on D5 W normal saline solution to help normalize her blood sugars. Her blood sugars ranged from 120 to 179 while in the emergency department. INTERPRETATION OF IMAGING: Imaging studies were interpreted by myself and read by radiology as per the imaging section of this note. CT scan of the soft tissue neck with IV contrast showed findings concerning for periosteal abscess over the right maxilla adjacent to tooth #7 which demonstrates periapical lucency and root canal concerning for a failed root canal. Faucial tonsillitis. Prominent cervical lymph nodes. CONSULTATIONS: On-call hospitalist. MDM SUMMARY: I examined the patient. An IV lock was placed and labs were drawn. The patient's blood sugar was initially 308, but per her Dexcom her blood sugars continue to decrease to the 70s at the time of my exam. The patient was concerned that her blood sugar would continue to drop since she was unable to eat or drink anything. Therefore, she was started on D5 W normal saline solution at 125 mL/h. Her blood sugars monitored on her Dexcom remained between 120 to 179 while in the emergency department. The patient's white blood cell count is elevated, but lactate normal. Blood cultures are pending. CT scan showed a periosteal abscess as well as a failed root canal. The patient has failed 2 courses of oral clindamycin. Due to medication allergies, she is unable to take Augmentin or Unasyn. Per recommendation of the utility tender carding, she was given Rocephin 2 g IV. I feel the patient requires admission for further management of her symptoms due to the persistent abscess and development of facial cellulitis despite 2 courses of oral antibiotics. She is also a type I diabetic and her blood sugars have not been well controlled secondary to the infection and the recent steroid use. I spoke with the on-call hospitalist who agreed to admit the patient for further management. Please refer to their dictation for further details. The patient's care was transferred in stable condition. DIAGNOSIS: Dental abscess Type 1 diabetes Past Med/Surg History Medical History Asthma Surgical History History of carpal tunnel surgery History of nasal surgery History of tubal ligation Family History Mother Diabetes Osteoporosis Father Hypertension Dyslipidemia Asthma Allergies Heart disease Sister Diabetes Anxiety Aunt Heart disease Diabetes Denies family history of Ovarian cancer Breast cancer Colorectal cancer Social History Smoking Status: Current every day smoker Tobacco Type: Cigarettes Age Started Using Tobacco: 17; Age Quit Using Tobacco: 34; Second Hand Exposure: No; Do You Dip or Chew Tobacco: No; Hx Alcohol Use: Yes Alcohol Intake Frequency: Monthly or Less Hx Substance Use: No Preferred Language: Malay Visual Impairment: No Limitations Hearing Ability: Normal Beliefs That Will Affect Care: None marital status: Current Living Situation: Spouse and Family Current Living Situation Comment: spouse and two children current occupational status: employed 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 Feels Safe at Home: Yes Diet: regular Diet Comment: regular caffeine: Yes during the past year weight has: remained stable Dental Care, Regularly: Yes Physical Activity Frequency: Daily Physical Activity Frequency Comment: work Seatbelt Use: always Sunscreen Use: Yes Allergies Allergies Allergy/AdvReac Type Severity Reaction Status Date / Time latex Allergy Intermediate rash, Verified 07/31/22 14:31 swelling , redness, itchy Penicillins Allergy Intermediate HIVES Verified 07/31/22 14:31 shellfish derived Allergy Intermediate HIVES Verified 07/31/22 14:31 Cipro Allergy Unknown HEAD Unverified 06/06/17 20:02 PRESSURE ciprofloxacin Allergy Unknown HEAD Unverified 07/31/22 14:31 PRESSURE mold Allergy Unknown HIVES Verified 07/31/22 14:31 Dust Allergy Unknown HIVES Uncoded 07/31/22 14:31 Home Meds Home Medications Medication Instructions Recorded Confirmed melatonin 10 mg capsule 10 mg PO HS PRN Sleep 03/06/22 02/13/23 multivitamin 1 tab PO DAILY 03/06/22 02/13/23 clindamycin HCl 300 mg capsule 300 mg PO QID 02/13/23 02/13/23 methylprednisolone 4 mg tablets in 4 mg PO UD 02/13/23 02/13/23 a dose pack Previous Rx's Medication Instructions Recorded Teespringuch Verio test strips (blood #100 ea 09/11/21 sugar diagnostic) blood sugar diagnostic (OneTouch #200 ea 09/11/21 Verio test strips) albuterol sulfate 90 mcg/actuation 2 puff inhalation QID PRN 09/15/21 aerosol inhaler shortness of breath or wheezing #8.5 grams pen needle, diabetic 32 gauge x #100 ea 02/23/22 5/32" (BD Ultra-Fine Guadalupe Pen Needle) acetone (urine) test (Ketostix #25 ea 03/11/22 strips) blood-glucose sensor (Dexcom G6 #9 ea 03/12/22 Sensor device) glucagon 3 mg/actuation nasal 3 mg intranasal ONCE #2 ea 03/12/22 spray (Baqsimi) Omnipod 5 G6 Intro Kit (Gen 5) #1 ea 03/17/22 subcutaneous cartridge with controller (insulin pump cart,auto,BT-cntr) Omnipod 5 G6 Pods (Gen 5) (insulin #10 ea 03/17/22 pump cart,automated,BT) insulin glargine 100 unit/mL (3 13 unit (0.13 mL) subcut BID 90 04/13/22 mL) subcutaneous pen (Lantus days #25 mL Solostar U-100 Insulin) cholecalciferol (vitamin D3) 50 100 mcg (2 x 50 mcg (2,000 unit)) 06/08/22 mcg (2,000 unit) capsule PO DAILY #30 caps insulin aspart U-100 100 unit/mL 67 unit (0.67 mL) subcut .COMPLEX 06/29/22 subcutaneous solution (Novolog #6 vials U-100 Insulin aspart) cyclobenzaprine 5 mg tablet 5 mg PO TID PRN muscle spasm #30 07/17/22 tabs atorvastatin 40 mg tablet 40 mg PO DAILY #30 tabs 12/04/22 blood-glucose transmitter (Dexcom #1 ea 12/21/22 G6 Transmitter device) lancets 33 gauge (OneTouch Delica #100 ea 12/21/22 Plus Lancet) cetirizine 10 mg capsule (Zyrtec) 10 mg PO DAILY PRN allergy 01/20/23 symptoms #90 caps buspirone 5 mg tablet 5 mg PO BID #60 tabs 01/22/23 ketoconazole 2 % shampoo 1 applic topical .COMPLEX #120 mL 01/22/23 bupropion HCl 300 mg 24 hr tablet, 300 mg PO QAM #30 tabs 02/05/23 extended release (Wellbutrin XL) Results & Data (ED) Vital Signs Vital Signs - 24 hr 02/12/23 19:14 02/13/23 02:45 Temperature 37.1 C Temperature Source Temporal Artery Scan Pulse Rate 97 H Pulse Rate [Finger] 96 H Respiratory Rate 18 18 Respiratory Depth Normal Normal Blood Pressure 141/92 H Blood Pressure [Right Arm] 110/65 Blood Pressure Mean 108 Blood Pressure Mean [Right Arm] 80 Pulse Oximetry 98 98 Oxygen Delivery Method Room Air Room Air Sepsis Recent Fever Within 48 Hours Yes Sepsis New/Unexplained Change in Mental Status N/A Sepsis Action Taken by Nursing No Action Required Laboratory Data 02/12/23 19:30 02/12/23 19:30 Lab Results 02/12/23 02/13/23 02/13/23 Range/Units 19:30 01:03 02:36 WBC 14.74 H (4.8-10.8) K/ul RBC 5.14 (4.20-5.40) M/uL Hgb 14.3 (12.0-16.0) g/dl Hct 42.9 (37.0-47.0) % MCV 83.5 (80.0-100.0) fL MCH 27.8 (25.0-34.0) pg MCHC 33.3 (32.0-36.0) g/dL RDW Std Deviation 40.0 (36.4-46.3) fL RDW Coeff of Calvin 13.1 (11.5-14.5) % Plt Count 377 (130-400) K/uL MPV 9.2 L (9.4-12.4) fL Immature Gran % (Auto) 1.8 % Neut % (Auto) 83.1 % Lymph % (Auto) 11.6 % [place] % (Auto) 2.6 % Eos % (Auto) 0.6 % Baso % (Auto) 0.3 % Neut # (Auto) 12.23 H (1.40-6.50) K/uL Lymph # (Auto) 1.71 (1.20-3.40) K/uL [place] # (Auto) 0.39 (0.11-0.59) K/uL Eos # (Auto) 0.09 (0.00-0.50) K/uL Baso # (Auto) 0.05 (0.00-0.20) K/uL Immature Gran # (Auto) 0.27 H (0.01-0.20) K/uL Sodium 136 (136-145) mmol/L Potassium 3.9 (3.5-5.1) mmol/L Chloride 100 (98-107) mmol/L Carbon Dioxide 30 (21-32) mmol/L Anion Gap 6 (3-11) BUN 10 (6-23) mg/dl Creatinine 0.77 (0.6-1.2) mg/dl Est Cr Clr Drug Dosing 82.9 ml/min Est GFR ( Amer) 114.3 ml/min Est GFR (Non-Af Amer) 98.6 ml/min BUN/Creatinine Ratio 13.0 (10-20) Glucose 308 H* (70-99(Fasting)) mg/dl POC Glucose 179 H (70-99) mg/dl Lactate 1.0 (0.4-2.0) mmol/L Calcium 9.7 (8.6-10.3) mg/dl Total Bilirubin 0.5 (0.2-1.0) mg/dl AST 9 L (13-39) U/L ALT 10 (7-52) U/L Alkaline Phosphatase 107 H (34-104) U/L Total Protein 7.9 (6.0-8.3) gm/dl Albumin 4.4 (3.4-5.0) gm/dl Globulin 3.5 (2.5-4.0) gm/dl Albumin/Globulin Ratio 1.3 (0.9-2) Administered Medications Dextrose/Sodium Chloride (D5w And Nss) 1,000 mls @ 125 mls/hr IV .Q8H REKHA Stop: 03/15/23 00:00 Last Admin: 02/13/23 01:03 Dose: 125 mls/hr Documented By: BS Ketorolac Tromethamine (Ketorolac Tromethamine 15 Mg/Ml Vial) 15 mg IV Q6H PRN PRN Reason: Pain Stop: 02/18/23 04:04 Last Admin: 02/13/23 04:56 Dose: 15 mg Documented By: Ondansetron HCl (Ondansetron Inj 2 Mg/Ml 2 Ml Vial) 4 mg IV Q6H PRN PRN Reason: Nausea Stop: 03/15/23 04:04 Last Admin: 02/13/23 04:56 Dose: 4 mg Documented By: Discontinued Medications Ceftriaxone Sodium (Rocephin) 2,000 mg in 50 mls @ 100 mls/hr IV NOW STA Stop: 02/13/23 00:29 Last Infusion: 02/13/23 01:59 Dose: Infused Documented By: Admin: 02/13/23 01:03 Dose: 100 mls/hr Documented By: VALENTINO Ioversol (Optiray 320 100ml) 93 ml IV ONCE ONE Stop: 02/13/23 00:47 Last Admin: 02/13/23 00:47 Dose: 93 ml Documented By: GREGORY Ketorolac Tromethamine (Ketorolac Tromethamine 15 Mg/Ml Vial) 15 mg IV NOW STA Stop: 02/13/23 00:04 Last Admin: 02/13/23 00:18 Dose: 15 mg Documented By: Metoclopramide HCl (Metoclopramide Hcl Inj 5 Mg/Ml 2 Ml Vial) 10 mg IV NOW STA Stop: 02/13/23 03:14 Last Admin: 02/13/23 04:36 Dose: Not Given Documented By: Ondansetron HCl (Ondansetron 4 Mg Od Tab) 4 mg PO Q4H PRN PRN Reason: Nausea And Vomiting Stop: 03/14/23 20:00 Last Admin: 02/12/23 20:04 Dose: 4 mg Documented By: KALEIGH Ondansetron HCl (Ondansetron Inj 2 Mg/Ml 2 Ml Vial) 4 mg IV NOW STA Stop: 02/13/23 00:04 Last Admin: 02/13/23 00:18 Dose: 4 mg Documented By: Imaging Data Radiologist's Impression: Soft Tissue Neck CT 02/13/23 00:00 Exam(s): CT NECK With Contrast IV Amt: 93 cc's optiray 320 EXAM: CT Neck With Intravenous Contrast CLINICAL HISTORY: Reason for exam: eval dental abscess/facial cellulitis. TECHNIQUE: Axial computed tomography images of the neck with intravenous contrast. CTDI is 16.59 mGy and DLP is 382.82 mGy-cm. Automated exposure control was utilized for the study. A dose lowering technique was utilized adhering to the principles of ALARA. CONTRAST: Patient received 93 cc's optiray 320 of IV contrast COMPARISON: No relevant prior studies available. FINDINGS: Oropharynx: Enlarged faucial tonsils. No peritonsillar abscess. Hypopharynx: Unremarkable. Larynx: Unremarkable. Normal epiglottis. Trachea: Unremarkable. Retropharyngeal space: Unremarkable. Submandibular/parotid glands: Unremarkable. Glands are normal in size. Thyroid: Unremarkable. No enlarged or calcified nodules. Bones/joints: Periapical lucency about tooth #7 status post root canal. Soft tissues: There is a periosteal abscess overlying the right maxilla measuring 14 x 11 x 3.2 mm with moderate inflammation of the adjacent subcutaneous tissues. Moderate disc degeneration C5-6 and C6-7 with ossification of the posterior longitudinal ligament and moderate spinal canal stenosis at C6-7. Vasculature: No acute findings. Lymph nodes: Prominent cervical lymph nodes. Lung apices: Unremarkable as visualized. IMPRESSION: Findings concerning for periosteal abscess over the right maxilla adjacent to tooth #7 which demonstrates periapical lucency and root canal concerning for a failed root canal. Recommend dental consult. Faucial tonsillitis Prominent cervical lymph nodes.. Electronically signed by: Usha Vega MD 02/13/23 02:05 AM Discharge Plan Visit Data Chief Complaint: Dental/Oral Stated Complaint: TOOTH INFECTION, ROOT CANNAL HYPERGLYCIMIA ED Provider: Tree Navarro ED Midlevel Provider: Susan Callahan Discharge Problem: Dental abscess, Diabetes mellitus type 1 Patient Disposition: Admitted As Inpatient Condition: Good Discharge Instructions Interventions: ED Discharge Assessment Last Done: 02/13/23 04:06
[2023-02-13] MEDS ORDERED: cefTRIAXone SODIUM 2,000 MG/50 ML BAG IV STA
[2023-02-13] MEDS ORDERED: KETOROLAC TROMETHAMINE 15 MG/ML VIAL IV STA (00:03)
[2023-02-13] MEDS ORDERED: ONDANSETRON INJ 2 MG/ML 2 ML VIAL IV STA ×2 (00:03→22:37)
[2023-02-13] MEDS ORDERED: OPTIRAY 320 100ml IV ONE (00:46)
[2023-02-13] MEDS: D5W AND NSS 1,000 ML IV SCH ×3 (01:03→17:39)
--- NOTE | 2023-02-13 02:06 | CT Scan Report ---
Exam(s): CT NECK With Contrast IV Amt: 93 cc's optiray 320 EXAM: CT Neck With Intravenous Contrast CLINICAL HISTORY: Reason for exam: eval dental abscess/facial cellulitis. TECHNIQUE: Axial computed tomography images of the neck with intravenous contrast. CTDI is 16.59 mGy and DLP is 382.82 mGy-cm. Automated exposure control was utilized for the study. A dose lowering technique was utilized adhering to the principles of ALARA. CONTRAST: Patient received 93 cc's optiray 320 of IV contrast COMPARISON: No relevant prior studies available. FINDINGS: Oropharynx: Enlarged faucial tonsils. No peritonsillar abscess. Hypopharynx: Unremarkable. Larynx: Unremarkable. Normal epiglottis. Trachea: Unremarkable. Retropharyngeal space: Unremarkable. Submandibular/parotid glands: Unremarkable. Glands are normal in size. Thyroid: Unremarkable. No enlarged or calcified nodules. Bones/joints: Periapical lucency about tooth #7 status post root canal. Soft tissues: There is a periosteal abscess overlying the right maxilla measuring 14 x 11 x 3.2 mm with moderate inflammation of the adjacent subcutaneous tissues. Moderate disc degeneration C5-6 and C6-7 with ossification of the posterior longitudinal ligament and moderate spinal canal stenosis at C6-7. Vasculature: No acute findings. Lymph nodes: Prominent cervical lymph nodes. Lung apices: Unremarkable as visualized. IMPRESSION: Findings concerning for periosteal abscess over the right maxilla adjacent to tooth #7 which demonstrates periapical lucency and root canal concerning for a failed root canal. Recommend dental consult. Faucial tonsillitis Prominent cervical lymph nodes.. Electronically signed by: Usha Vega MD 02/13/23 02:05 AM
[2023-02-13] MEDS ORDERED: METOCLOPRAMIDE HCL INJ 5 MG/ML 2 ML VIAL IV STA (03:13)
--- NOTE | 2023-02-13 03:44 | History & Physical Report ---
Date of Service February 13, 2023 Assessment & Plan (1) Dental abscess: Plan: -Persistent R maxillary dental abscess s/p root canal and drainage, noted on CT scan -Ceftriaxone initiated in ER, will continue for now -Deferring need for pseudomonal/MRSA coverage at present given low likelihood of such pathogens in dental infection -Oromaxillofacial surgery consulted -BCx pending -Modest leukocytosis which is consistent with infection but may be distorted by recent steroid therapy -Monitor CBC (2) Hyperglycemia: Plan: -BSG 300 on admission and persistently high over past few days -Likely steroid hyperglycemia -Pt's BSG did drop to 70 in ER, with reported poor oral intake for 16+ hours -Started on D5 NSS in ER, we will continue for now -Electrolytes stable including K -Monitor BMP (3) Diabetes mellitus type 1: Plan: -Well controlled DM1 on insulin pump, last A1C 6.8% in 12/2022 -Deferring further basal/SSI coverage for now given recent acute drop in BSG to 70 -Anticipate pt may be able to use her own Dexcom + insulin pump to manage BSG in hospital (4) Dyslipidemia: Plan: -Continue atorvastatin (5) Anxiety and depression: Plan: -Continue bupropion, buspirone (6) Asthma: Plan: -Not in exacerbation -Continue albuterol PRN Plan FENGI: NPO in case of procedure in AM Code status: Full DVT prophylaxis: SCDs Isolation: None Unit: Medical/surgical Disposition planning: Anticipate home History of Present Illness Chief Complaint: Facial pain Primary Care Provider: Agustina Maciel DO Pt is 37 yo F with PMH DM1 w/ insulin pump and Dexcom, asthma, HLD, anxiety and recent endodontic procedures presenting with facial pain. Pt reports onset of acute R sided dental+facial pain about 1 month prior with associated R sided facial swelling and redness. Seen by PCP on 01/22 and started on clindamycin. Later evaluated by dentist and ultimately sent for root canal on 02/05. Pain worsened a few days after procedure and clindamycin dose was increased by buffet server afterward. Pt's symptoms progressed until 02/09 reevaluation by buffet server who stated abscess was not amenable to drainage and started pt on Medrol dose pack. She also notes continuous nausea w/o emesis since starting antibiotics and steroids. Pt notes persistent elevation of her BSGs above 300 since starting oral steroids. Pt's symptoms worsened and she underwent abscess drainage on 02/12, though her symptoms continued to worsen until she presented to ER on evening of 02/12 at her endodonist's referral for IV antibiotic treatment. Pt arrived to ER hemodynamically stable. Initial evaluation significant for WBC 14.7, BSG 308 -> 179. Soft tissue/neck CT revealed 14 x 11 x 3.2 mm R maxillary periosteal abscess to tooth #7 demonstrating root cancel with possible failure. BSG later dropped to 70 for which pt was started on D5 NSS mIVF. At present, pt reports continued pain and nausea though they are slightly improved from prior. No new complaints. Allergies Allergy/AdvReac Type Severity Reaction Status Date / Time latex Allergy Intermediate rash, Verified 07/31/22 14:31 swelling , redness, itchy Penicillins Allergy Intermediate HIVES Verified 07/31/22 14:31 shellfish derived Allergy Intermediate HIVES Verified 07/31/22 14:31 Cipro Allergy Unknown HEAD Unverified 06/06/17 20:02 PRESSURE ciprofloxacin Allergy Unknown HEAD Unverified 07/31/22 14:31 PRESSURE mold Allergy Unknown HIVES Verified 07/31/22 14:31 Dust Allergy Unknown HIVES Uncoded 07/31/22 14:31 Home Medications Medication Instructions Recorded Confirmed Type OneTouch Verio test strips (blood #100 ea 09/11/21 02/13/23 Rx sugar diagnostic) blood sugar diagnostic (OneTouch #200 ea 09/11/21 02/13/23 Rx Verio test strips) albuterol sulfate 90 mcg/actuation 2 puff inhalation QID PRN 09/15/21 02/13/23 Rx aerosol inhaler shortness of breath or wheezing #8.5 grams pen needle, diabetic 32 gauge x #100 ea 02/23/22 02/13/23 Rx 5/32" (BD Ultra-Fine Guadalupe Pen Needle) melatonin 10 mg capsule 10 mg PO HS PRN Sleep 03/06/22 02/13/23 History multivitamin 1 tab PO DAILY 03/06/22 02/13/23 History acetone (urine) test (Ketostix #25 ea 03/11/22 02/13/23 Rx strips) blood-glucose sensor (Dexcom G6 #9 ea 03/12/22 02/13/23 Rx Sensor device) glucagon 3 mg/actuation nasal 3 mg intranasal ONCE #2 ea 03/12/22 02/13/23 Rx spray (Baqsimi) Omnipod 5 G6 Intro Kit (Gen 5) #1 ea 03/17/22 02/13/23 Rx subcutaneous cartridge with controller (insulin pump cart,auto,BT-cntr) Omnipod 5 G6 Pods (Gen 5) (insulin #10 ea 03/17/22 02/13/23 Rx pump cart,automated,BT) insulin glargine 100 unit/mL (3 13 unit (0.13 mL) subcut BID 90 04/13/22 02/13/23 Rx mL) subcutaneous pen (Lantus days #25 mL Solostar U-100 Insulin) cholecalciferol (vitamin D3) 50 100 mcg (2 x 50 mcg (2,000 unit)) 06/08/22 02/13/23 Rx mcg (2,000 unit) capsule PO DAILY #30 caps insulin aspart U-100 100 unit/mL 67 unit (0.67 mL) subcut .COMPLEX 06/29/22 02/13/23 Rx subcutaneous solution (Novolog #6 vials U-100 Insulin aspart) cyclobenzaprine 5 mg tablet 5 mg PO TID PRN muscle spasm #30 07/17/22 02/13/23 Rx tabs atorvastatin 40 mg tablet 40 mg PO DAILY #30 tabs 12/04/22 02/13/23 Rx blood-glucose transmitter (Dexcom #1 ea 12/21/22 02/13/23 Rx G6 Transmitter device) lancets 33 gauge (OneTouch Delica #100 ea 12/21/22 02/13/23 Rx Plus Lancet) cetirizine 10 mg capsule (Zyrtec) 10 mg PO DAILY PRN allergy 01/20/23 02/13/23 Rx symptoms #90 caps buspirone 5 mg tablet 5 mg PO BID #60 tabs 01/22/23 02/13/23 Rx ketoconazole 2 % shampoo 1 applic topical .COMPLEX #120 mL 01/22/23 02/13/23 Rx bupropion HCl 300 mg 24 hr tablet, 300 mg PO QAM #30 tabs 02/05/23 02/13/23 Rx extended release (Wellbutrin XL) clindamycin HCl 300 mg capsule 300 mg PO Q6H oral/facial 02/13/23 Rx infection 7 days #14 caps clindamycin HCl 300 mg capsule 300 mg PO QID facial infection 02/13/23 02/13/23 History methylprednisolone 4 mg tablets in 4 mg PO UD 02/13/23 02/13/23 History a dose pack metronidazole 500 mg tablet 500 mg PO Q8H oral/facial 02/13/23 Rx infection 7 days #21 tabs ondansetron HCl 8 mg tablet 8 mg PO Q8H PRN nausea and 02/13/23 Rx vomiting #10 tabs Past Med/Surg History Medical History Asthma Surgical History History of tubal ligation History of carpal tunnel surgery History of nasal surgery Family History Mother Diabetes Osteoporosis Father Hypertension Dyslipidemia Asthma Allergies Heart disease Sister Diabetes Anxiety Aunt Heart disease Diabetes Denies family history of Ovarian cancer Breast cancer Colorectal cancer Social History Smoking Status: Former smoker Tobacco Type: Cigarettes Age Started Using Tobacco: 17; Age Quit Using Tobacco: 34; Second Hand Exposure: No; Do You Dip or Chew Tobacco: No; Hx Alcohol Use: No Hx Substance Use: No Preferred Language: Kyrgyz Communication Ability: Effective Visual Impairment: No Limitations Hearing Ability: Normal Convention Services Manager Required: No Beliefs That Will Affect Care: None marital status: Current Living Situation: Spouse and Family Current Living Situation Comment: spouse and two children current occupational status: employed 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 Feels Safe at Home: Yes Safety Concerns: Feels Safe At This Time Diet: regular Diet Comment: regular caffeine: Yes during the past year weight has: remained stable Dental Care, Regularly: Yes Physical Activity Frequency: Daily Physical Activity Frequency Comment: work Seatbelt Use: always Sunscreen Use: Yes Assistive Devices: None Review of Systems Review of Systems: Per HPI/Subjective Physical Exam Physical Exam: General: uncomfortable appearing, no acute distress HEENT: PERRL, EOMI, conjunctivae clear without injection, anicteric sclerae, moist mucous membranes, clear oropharynx without exudate though noted overlying R gum wall edema Neck: supple, trachea midline, no thyromegaly, no JVD, no cervical lymphadenopathy CV: RRR, normal S1 and S2, no murmurs Resp: CTAB, no increased work of breathing, no crackles or wheezes Abd: Soft, nontender, nondistended, no guarding or rebound, no hep atosplenomegaly MSK: Normal bulk of all four extremities Neuro: AOx3, no focal motor or sensory deficits Skin: no rashes or lesions, warm and dry. R facial swelling and erythema noted over maxillary and zygomatic distribution, tender to palpation Ext: no LE peripheral edema or erythema, capillary refill <2s in all four extremities, 2+ LE peripheral pulses b/l Results & Data Results & Data Vital Signs (Past 12 Hours) Vital Signs Temp Pulse Pulse Resp BP BP Pulse Ox 02/13/23 02:45 96 H 18 110/65 98 02/12/23 19:14 37.1 C 97 H 18 141/92 H 98 O2 Del Method 02/13/23 02:45 Room Air 02/12/23 19:14 Room Air Supervising Physician Co-Signing Physician Notes Attending addendum: I have physically seen this patient, have supervised the medical residents activities, and agree with the H&P unless as otherwise noted. Assessment and Plan: Periosteal abscess/right maxilla #7/failed root canal- Patient has completed 2 courses of outpatient clindamycin Failure of outpatient treatment Allergic to penicillins Ceftriaxone IV begun in ED, will continue N.p.o. after midnight Consult to Dr. Corral Hyperglycemia/diabetes mellitus- Patient had decreased oral intake over the past several days Glucose had dropped to 70 in ED and patient was placed on D5 normal saline, which will be continued until oral intake is resumed Patient will continue with her Dexcom and insulin pump Continue other medications and notations as ordered Resident Activity Tracking Resident Involvement: Resident Care Provided Care Provided: Adult Hospital Medicine
[2023-02-13] MEDS ORDERED: ALBUTEROL HFA 8 GM INHALER INH PRN (04:05)
[2023-02-13] MEDS: ONDANSETRON INJ 2 MG/ML 2 ML VIAL IV PRN ×3 (04:56→20:02)
[2023-02-13] MEDS: KETOROLAC TROMETHAMINE 15 MG/ML VIAL IV PRN ×3 (04:56→20:02)
[2023-02-13 05:56] LABS: Hematocrit (blood only) 35.1 % (37.0-47.0); Hemoglobin 11.7 g/dl (12.0-16.0); Mean Corpuscular Hemoglobin 28.1 pg (25.0-34.0); Mean Corpuscular Hgb Conc 33.3 g/dL (32.0-36.0); Mean Corpuscular Volume 84.4 fL (80.0-100.0); Mean Platelet Volume 9.2 fL (9.4-12.4); Platelet Count 279 K/uL (130-400); RDW Coefficient of Variation 13.2 % (11.5-14.5); RDW Standard Deviation 40.7 fL (36.4-46.3); Red Blood Count 4.16 M/uL (4.20-5.40); White Blood Count 12.49 K/ul (4.8-10.8)
[2023-02-13 06:17] LABS: BUN Creatinine Ratio 12.7 (10-20); Calcium 8.2 mg/dl (8.6-10.3); Creatinine Clr Calc Pharmacy 89.9 ml/min; Est GFR (African American) 126.1 ml/min; Est GFR (Non-African American) 108.8 ml/min; Potassium 3.6 mmol/L (3.5-5.1)
--- NOTE | 2023-02-13 08:07 | Hospitalist Progress Note ---
Date of Service February 13, 2023 Assessment & Plan (1) Dental abscess: (2) Diabetes mellitus type 1: (3) Dyslipidemia: (4) Anxiety and depression: (5) Asthma: Plan Dental abscess -Persistent R maxillary dental abscess s/p root canal and drainage, noted on CT scan -Ceftriaxone initiated in ER, will continue -Deferring need for pseudomonal/MRSA coverage at present given low likelihood of such pathogens in dental infection -Oromaxillofacial surgery consulted, spoken to by phone; likely to perform surgery 02/14/23 -BCx pending -Modest leukocytosis, consistent with infection but may be distorted by recent steroid therapy -Monitor CBCFENGI: regular diet resumed 02/13/23 but NPO again at midnight T1 Diabetes -Well controlled DM1 on insulin pump, last A1C 6.8% in 12/2022 -Patient currently using her own Dexcom + insulin pump to manage BSG in hospital Anxiety/Depression -Continue bupropion, buspirone; gave additional 5 mg buspirone for breakthrough anxiety morning of 02/13/23 Dyslipidemia - continue atorvastatin Asthma -Not in exacerbation -Continue albuterol PRN Code status: Full DVT prophylaxis: SCDs Isolation: None Unit: Medical/surgical Disposition planning: Anticipate home Admission and Anticipated Discharge Date Admission Date: February 13, 2023 Supervising Physician Co-Signing Physician Notes I personally examined the patient and verified all lewis points of history and exam, discussed case, and agree with decision making with Dr Louis feeling better stomach still a little upset but thinks it's just because she was NPO - dinner going well just going slow. d/w dr simental. vitals noted pleasant nad heent nc at mmm breathing unlabored no accessory muscles dental infection - fortunately nothing drainable. abx, time otherwise as above Results & Data Results & Data Vital Signs (Past 12 Hours) Vital Signs Pulse Resp BP Pulse Ox O2 Del Method 02/13/23 06:41 85 16 97 Room Air 02/13/23 02:45 96 H 18 110/65 98 Room Air
[2023-02-13] MEDS: buPROPion XL 300 MG TABCR PO SCH (09:23)
[2023-02-13] MEDS: ATORVASTATIN 40 MG TAB PO SCH (09:24)
[2023-02-13] MEDS: busPIRone 5 MG TAB PO SCH ×2 (09:24→22:53)
[2023-02-13] MEDS: ACETAMINOPHEN 325 MG TAB PO PRN ×2 (10:00→17:41)
[2023-02-13] MEDS ORDERED: busPIRone 5 MG TAB PO STA (10:30)
[2023-02-13] MEDS: metroNIDAZOLE 500 MG/100 ML BAG IV SCH ×2 (10:42→20:50)
--- NOTE | 2023-02-13 16:11 | Oral/Maxillofacial Consult ---
Date of Consultation February 13, 2023 Assessment & Plan (1) Dental abscess: (2) Diabetes mellitus type 1: (3) Failure of outpatient treatment: History of Present Illness Attending Physician: Liang Ferreira DO History of Present Illness Oral Maxillofacial Surgery Exam secondary to emergence admission for failure to respond to Root canal, I&D and oral antibiotics Present Complaint: Had root canal on teeth [address] Powell did I&D to drain infection with a lot of pus drainage noted on . On Clindamycin for a few days w/o resolution. Discussed the case with Dr Powell today ay 4 pm- he updated me on his treatment to date. Swelling and pain increased after the I&D not able to eat/drink, that is why she decided to go to the ER. Oral Exam: Finding--Right facial swelling 24 hours after I&D by examination grader Dr Powell Today the swelling is very soft--nothing to drain No intraoral swelling noted, I&D site is healing well Imaging: Exam(s): CT NECK With Contrast EXAM: CT Neck With Intravenous Contrast CLINICAL HISTORY: Reason for exam: eval dental abscess/facial cellulitis. FINDINGS: Oropharynx: Enlarged faucial tonsils. No peritonsillar abscess. Hypopharynx: Unremarkable. Larynx: Unremarkable. Normal epiglottis. Trachea: Unremarkable. Retropharyngeal space: Unremarkable. Submandibular/parotid glands: Unremarkable. Glands are normal in size. Thyroid: Unremarkable. No enlarged or calcified nodules. Bones/joints: Periapical lucency about tooth #7 status post root canal. Soft tissues: There is a periosteal abscess overlying the right maxilla measuring 14 x 11 x 3.2 mm with moderate inflammation of the adjacent subcutaneous tissues. Moderate disc degeneration C5-6 and C6-7 with ossification of the posterior longitudinal ligament and moderate spinal canal stenosis at C6-7. Vasculature: No acute findings. Lymph nodes: Prominent cervical lymph nodes. Lung apices: Unremarkable as visualized. IMPRESSION: Findings concerning for periosteal abscess over the right maxilla adjacent to tooth #7 which demonstrates periapical lucency and root canal concerning for a failed root canal. Recommend dental consult. My findings The endo was just completed a few days ago and clinically is excellent, looks great on CT No drainable pus noted, soft tissue very soft Faucial tonsillitis Prominent cervical lymph nodes.. Soft tissue: Swelling right face=soft, not red or tender to touch. The floor of the mouth, tongue, hard/soft palate, posterior pharyngeal area all with in normal limits, no pathology or abnormal findings noted. Oral Care: Overall oral care is good Occlusion: Class I TMJ exam: No pop, clicking, pain, good ROM, No history of TMJ injury or dysfunction Periodontal exam: Healthy gingival tissue without evidence of periodontal pathology. Head/Neck exam: Neck is supple, FROM, Able to extend and flex neck w/o difficulty, no masses, no abnormalities, no airway issues, no evidence of sleep apnea. Treatment Plan: I would suggest continue with the IV fluids and IV antibiotics until tomorrow AM then OK for discharge on Clindamycin and Flagyl and follow up with either DR Corral or Sherry. I reviewed the treatment plan and consent with the patient and her Understanding was expressed. Time was given for questions regarding post op care. No I&D needed Home care reviewed: tooth brushing, rinsing, follow up care with Dr Corral or Sherry diet=[id number] dental. Discussed activity level, driving/work while on Rx pain Meds. OK for discharge Wednesday AM on oral antibiotics Clindamycin 300 mg every 6 hours x 7 days Disp 24 Metronidazole (Flagyl) 500 mg every 6 hours x 7 days Disp 24 Peridex mount rinse Allergies Allergy/AdvReac Type Severity Reaction Status Date / Time latex Allergy Intermediate rash, Verified 07/31/22 14:31 swelling , redness, itchy Penicillins Allergy Intermediate HIVES Verified 07/31/22 14:31 shellfish derived Allergy Intermediate HIVES Verified 07/31/22 14:31 Cipro Allergy Unknown HEAD Unverified 06/06/17 20:02 PRESSURE ciprofloxacin Allergy Unknown HEAD Unverified 07/31/22 14:31 PRESSURE mold Allergy Unknown HIVES Verified 07/31/22 14:31 Dust Allergy Unknown HIVES Uncoded 07/31/22 14:31 Home Medications Medication Instructions Recorded Confirmed Type OneTouch Verio test strips (blood #100 ea 09/11/21 02/13/23 Rx sugar diagnostic) blood sugar diagnostic (OneTouch #200 ea 09/11/21 02/13/23 Rx Verio test strips) albuterol sulfate 90 mcg/actuation 2 puff inhalation QID PRN 09/15/21 02/13/23 Rx aerosol inhaler shortness of breath or wheezing #8.5 grams pen needle, diabetic 32 gauge x #100 ea 02/23/22 02/13/23 Rx 5/32" (BD Ultra-Fine Guadalupe Pen Needle) melatonin 10 mg capsule 10 mg PO HS PRN Sleep 03/06/22 02/13/23 History multivitamin 1 tab PO DAILY 03/06/22 02/13/23 History acetone (urine) test (Ketostix #25 ea 03/11/22 02/13/23 Rx strips) blood-glucose sensor (Dexcom G6 #9 ea 03/12/22 02/13/23 Rx Sensor device) glucagon 3 mg/actuation nasal 3 mg intranasal ONCE #2 ea 03/12/22 02/13/23 Rx spray (Baqsimi) Omnipod 5 G6 Intro Kit (Gen 5) #1 ea 03/17/22 02/13/23 Rx subcutaneous cartridge with controller (insulin pump cart,auto,BT-cntr) Omnipod 5 G6 Pods (Gen 5) (insulin #10 ea 03/17/22 02/13/23 Rx pump cart,automated,BT) insulin glargine 100 unit/mL (3 13 unit (0.13 mL) subcut BID 90 04/13/22 02/13/23 Rx mL) subcutaneous pen (Lantus days #25 mL Solostar U-100 Insulin) cholecalciferol (vitamin D3) 50 100 mcg (2 x 50 mcg (2,000 unit)) 06/08/22 02/13/23 Rx mcg (2,000 unit) capsule PO DAILY #30 caps insulin aspart U-100 100 unit/mL 67 unit (0.67 mL) subcut .COMPLEX 06/29/22 02/13/23 Rx subcutaneous solution (Novolog #6 vials U-100 Insulin aspart) cyclobenzaprine 5 mg tablet 5 mg PO TID PRN muscle spasm #30 07/17/22 02/13/23 Rx tabs atorvastatin 40 mg tablet 40 mg PO DAILY #30 tabs 12/04/22 02/13/23 Rx blood-glucose transmitter (Dexcom #1 ea 12/21/22 02/13/23 Rx G6 Transmitter device) lancets 33 gauge (OneTouch Delica #100 ea 12/21/22 02/13/23 Rx Plus Lancet) cetirizine 10 mg capsule (Zyrtec) 10 mg PO DAILY PRN allergy 01/20/23 02/13/23 Rx symptoms #90 caps buspirone 5 mg tablet 5 mg PO BID #60 tabs 01/22/23 02/13/23 Rx ketoconazole 2 % shampoo 1 applic topical .COMPLEX #120 mL 01/22/23 02/13/23 Rx bupropion HCl 300 mg 24 hr tablet, 300 mg PO QAM #30 tabs 02/05/23 02/13/23 Rx extended release (Wellbutrin XL) clindamycin HCl 300 mg capsule 300 mg PO QID 02/13/23 02/13/23 History methylprednisolone 4 mg tablets in 4 mg PO UD 02/13/23 02/13/23 History a dose pack Patient History Medical History Asthma Surgical History History of tubal ligation History of carpal tunnel surgery History of nasal surgery Family History Mother Diabetes Osteoporosis Father Hypertension Dyslipidemia Asthma Allergies Heart disease Sister Diabetes Anxiety Aunt Heart disease Diabetes Denies family history of Ovarian cancer Breast cancer Colorectal cancer Social History Smoking Status: Former smoker Tobacco Type: Cigarettes Age Started Using Tobacco: 17; Age Quit Using Tobacco: 34; Second Hand Exposure: No; Do You Dip or Chew Tobacco: No; Hx Alcohol Use: No Hx Substance Use: No Preferred Language: Tamazight Communication Ability: Effective Visual Impairment: No Limitations Hearing Ability: Normal Accessioner Required: No Beliefs That Will Affect Care: None marital status: Current Living Situation: Spouse and Family Current Living Situation Comment: spouse and two children current occupational status: employed 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 Feels Safe at Home: Yes Safety Concerns: Feels Safe At This Time Diet: regular Diet Comment: regular caffeine: Yes during the past year weight has: remained stable Dental Care, Regularly: Yes Physical Activity Frequency: Daily Physical Activity Frequency Comment: work Seatbelt Use: always Sunscreen Use: Yes Assistive Devices: None Results & Data Vital Signs (Past 12 Hours) Vital Signs Temp Pulse Resp BP Pulse Ox O2 Del Method 02/13/23 15:37 36.9 C 92 H 18 146/88 H 98 Room Air 02/13/23 15:19 Room Air 02/13/23 06:41 85 16 97 Room Air PG Care Time/CCT Total # of Minutes Spent Total Time Spent with Patient: Total time spent is greater than 50% in coordination of care (as documented) at patient's floor/unit and/or counseling patient: Coding Level of Care Code 57758 IN/OBS CONSULT LVL 3,45M Diagnoses Dental abscess K04.7 Diabetes mellitus type 1 E10.9 Failure of outpatient treatment Z78.9
[2023-02-13] MEDS ORDERED: CHLORHEXIDINE GLUCONATE 0.12% 480 ML MT PRN (17:26)
--- NOTE | 2023-02-13 19:50 | Billing Data ---
Date of Service February 13, 2023 Coding Level of Care Code 85124 SUB INP/OBS CARE
--- NOTE | 2023-02-13 19:56 | Billing Data ---
Date of Service February 13, 2023 Coding Level of Care Code 94436 INT INP/OBS CARE
[2023-02-13] MEDS ORDERED: cefTRIAXone SODIUM 1,000 MG in DEXTROSE 5 % MINI-B 50 ML IV SCH (22:00)
[2023-02-14] MEDS: ONDANSETRON INJ 2 MG/ML 2 ML VIAL IV PRN (02:23)
[2023-02-14] MEDS: KETOROLAC TROMETHAMINE 15 MG/ML VIAL IV PRN ×2 (02:23→08:57)
[2023-02-14] MEDS: metroNIDAZOLE 500 MG/100 ML BAG IV SCH ×2 (02:23→10:21)
[2023-02-14 07:23] LABS: Hematocrit (blood only) 36.9 % (37.0-47.0); Hemoglobin 12.3 g/dl (12.0-16.0); Mean Corpuscular Hemoglobin 27.8 pg (25.0-34.0); Mean Corpuscular Hgb Conc 33.3 g/dL (32.0-36.0); Mean Corpuscular Volume 83.3 fL (80.0-100.0); Mean Platelet Volume 9.3 fL (9.4-12.4); Platelet Count 287 K/uL (130-400); RDW Coefficient of Variation 13.2 % (11.5-14.5); RDW Standard Deviation 40.2 fL (36.4-46.3); Red Blood Count 4.43 M/uL (4.20-5.40); White Blood Count 5.64 K/ul (4.8-10.8)
[2023-02-14 07:41] LABS: Albumin Globulin Ratio 1.3 (0.9-2); Albumin Level 3.3 gm/dl (3.4-5.0); Bilirubin,Total 0.3 mg/dl (0.2-1.0); Calcium 8.6 mg/dl (8.6-10.3); Creatinine Clr Calc Pharmacy 92.5 ml/min; Est GFR (African American) 128.9 ml/min; Est GFR (Non-African American) 111.2 ml/min; Globulin 2.6 gm/dl (2.5-4.0); Potassium 3.8 mmol/L (3.5-5.1); Total Protein 5.9 gm/dl (6.0-8.3)
--- NOTE | 2023-02-14 08:35 | Discharge Summary ---
Date of Service February 14, 2023 Admission HPI Per Admitting Provider Pt is 37 yo F with PMH DM1 w/ insulin pump and Dexcom, asthma, HLD, anxiety and recent endodontic procedures presenting with facial pain. Pt reports onset of acute R sided dental+facial pain about 1 month prior with associated R sided facial swelling and redness. Seen by PCP on 01/22 and started on clindamycin. Later evaluated by dentist and ultimately sent for root canal on 02/05. Pain worsened a few days after procedure and clindamycin dose was increased by credit specialist afterward. Pt's symptoms progressed until 02/09 reevaluation by credit specialist who stated abscess was not amenable to drainage and started pt on Medrol dose pack. She also notes continuous nausea w/o emesis since starting antibiotics and steroids. Pt notes persistent elevation of her BSGs above 300 since starting oral steroids. Pt's symptoms worsened and she underwent abscess drainage on 02/12, though her symptoms continued to worsen until she presented to ER on evening of 02/12 at her endodonist's referral for IV antibiotic treatment. Pt arrived to ER hemodynamically stable. Initial evaluation significant for WBC 14.7, BSG 308 -> 179. Soft tissue/neck CT revealed 14 x 11 x 3.2 mm R maxillary periosteal abscess to tooth #7 demonstrating root cancel with possible failure. BSG later dropped to 70 for which pt was started on D5 NSS mIVF. At present, pt reports continued pain and nausea though they are slightly improved from prior. No new complaints. Discharge Data Consultations 02/13/23 03:02 ED Decision to Admit Stat 02/13/23 03:42 Consult Oromaxillofacial Surgery Routine Hospital Course (1) Dental abscess: (2) Diabetes mellitus type 1: (3) Dyslipidemia: (4) Anxiety and depression: (5) Asthma: Plan Dental abscess -Persistent R maxillary dental abscess s/p root canal and drainage, noted on CT scan -Ceftriaxone initiated in ER, will continue -Deferring need for pseudomonal/MRSA coverage at present given low likelihood of such pathogens in dental infection -Oromaxillofacial surgery consulted, spoken to by phone; likely to perform surgery 02/14/23 -BCx pending -Modest leukocytosis, consistent with infection but may be distorted by recent steroid therapy -Monitor CBCFENGI: regular diet resumed 02/13/23 but NPO again at midnight T1 Diabetes -Well controlled DM1 on insulin pump, last A1C 6.8% in 12/2022 -Patient currently using her own Dexcom + insulin pump to manage BSG in hospital Anxiety/Depression -Continue bupropion, buspirone; gave additional 5 mg buspirone for breakthrough anxiety morning of 02/13/23 Dyslipidemia - continue atorvastatin Asthma -Not in exacerbation -Continue albuterol PRN Code status: Full DVT prophylaxis: SCDs Isolation: None Unit: Medical/surgical Disposition planning: Anticipate home Resident Activity Tracking Resident Involvement: Resident Care Provided Care Provided: Adult Hospital Medicine
--- NOTE | 2023-02-14 08:51 | Discharge Summary ---
Date of Service February 14, 2023 Admission HPI Per Admitting Provider [facility] [place] [address] History & Physical Report Signed Patient: SHERYL LUONG Admit Date: 02/13/23 MR#: [id number] Att Phy: Liang Ferreira D.O. Acct ID: [id number] Betzaida Phy: PranaywanderAgustina DO Date: 1985 Fam Phy: Age: 37 Location: 3W Sex: F Room/Bed: [facility] cc: ~ *NOTICE TO RECEIVING REPUBLICAN/AGENCY This information is strictly Confidential and protected under [place] law. [place] law prohibits you from making any further disclosure of this information unless further disclosure is expressly permitted by the written consent of the person to whom it pertains or is authorized by law. A general authorization for the release of medical or other information is not sufficient for this purpose. Hospital accepts no responsibility if the information is made available to any other person, INCLUDING THE PATIENT. Date of Service February 13, 2023 Assessment & Plan (1) Dental abscess: Plan: -Persistent R maxillary dental abscess s/p root canal and drainage, noted on CT scan -Ceftriaxone initiated in ER, will continue for now -Deferring need for pseudomonal/MRSA coverage at present given low likelihood of such pathogens in dental infection -Oromaxillofacial surgery consulted -BCx pending -Modest leukocytosis which is consistent with infection but may be distorted by recent steroid therapy -Monitor CBC (2) Hyperglycemia: Plan: -BSG 300 on admission and persistently high over past few days -Likely steroid hyperglycemia -Pt's BSG did drop to 70 in ER, with reported poor oral intake for 16+ hours -Started on D5 NSS in ER, we will continue for now -Electrolytes stable including K -Monitor BMP (3) Diabetes mellitus type 1: Plan: -Well controlled DM1 on insulin pump, last A1C 6.8% in 12/2022 -Deferring further basal/SSI coverage for now given recent acute drop in BSG to 70 -Anticipate pt may be able to use her own Dexcom + insulin pump to manage BSG in hospital (4) Dyslipidemia: Plan: -Continue atorvastatin (5) Anxiety and depression: Plan: -Continue bupropion, buspirone (6) Asthma: Plan: -Not in exacerbation -Continue albuterol PRN Plan FENGI: NPO in case of procedure in AM Code status: Full DVT prophylaxis: SCDs Isolation: None Unit: Medical/surgical Disposition planning: Anticipate home History of Present Illness Chief Complaint: Facial pain Primary Care Provider: Agustina Maciel DO Pt is 37 yo F with PMH DM1 w/ insulin pump and Dexcom, asthma, HLD, anxiety and recent endodontic procedures presenting with facial pain. Pt reports onset of acute R sided dental+facial pain about 1 month prior with associated R sided facial swelling and redness. Seen by PCP on 01/22 and started on clindamycin. Later evaluated by dentist and ultimately sent for root canal on 02/05. Pain worsened a few days after procedure and clindamycin dose was increased by guard supervisor afterward. Pt's symptoms progressed until 02/09 reevaluation by guard supervisor who stated abscess was not amenable to drainage and started pt on Medrol dose pack. She also notes continuous nausea w/o emesis since starting antibiotics and steroids. Pt notes persistent elevation of her BSGs above 300 since starting oral steroids. Pt's symptoms worsened and she underwent abscess drainage on 02/12, though her symptoms continued to worsen until she presented to ER on evening of 02/12 at her endodonist's referral for IV antibiotic treatment. Pt arrived to ER hemodynamically stable. Initial evaluation significant for WBC 14.7, BSG 308 -> 179. Soft tissue/neck CT revealed 14 x 11 x 3.2 mm R maxillary periosteal abscess to tooth #7 demonstrating root cancel with possible failure. BSG later dropped to 70 for which pt was started on D5 NSS mIVF. Admission Exam Per Admitting Provider General: uncomfortable appearing, no acute distress HEENT: PERRL, EOMI, conjunctivae clear without injection, anicteric sclerae, moist mucous membranes, clear oropharynx without exudate though noted overlying R gum wall edema Neck: supple, trachea midline, no thyromegaly, no JVD, no cervical lymphadenopathy CV: RRR, normal S1 and S2, no murmurs Resp: CTAB, no increased work of breathing, no crackles or wheezes Abd: Soft, nontender, nondistended, no guarding or rebound, no hepatospl enomegaly MSK: Normal bulk of all four extremities Neuro: AOx3, no focal motor or sensory deficits Skin: no rashes or lesions, warm and dry. R facial swelling and erythema noted over maxillary and zygomatic distribution, tender to palpation Ext: no LE peripheral edema or erythema, capillary refill <2s in all four extremities, 2+ LE peripheral pulses b/l Principal Diagnosis faucial tonsillitis, inflamed s/p I&D of peritonsillar abscess Discharge Exam Constitutional WD/WN, vitals as above Neck swollen cervical lymph nodes Respiratory normal respiratory effort, lungs clear to auscultation Cardiovascular RRR, no murmur, no edema Extremities: no calf tenderness and no pedal edema Gastrointestinal (Abdomen) normal bowel sounds, soft, nontender, no hepatosplenomegaly Discharge Data Allergies Allergy/AdvReac Type Severity Reaction Status Date / Time latex Allergy Intermediate rash, Verified 07/31/22 14:31 swelling , redness, itchy Penicillins Allergy Intermediate HIVES Verified 07/31/22 14:31 shellfish derived Allergy Intermediate HIVES Verified 07/31/22 14:31 Cipro Allergy Unknown HEAD Unverified 06/06/17 20:02 PRESSURE ciprofloxacin Allergy Unknown HEAD Unverified 07/31/22 14:31 PRESSURE mold Allergy Unknown HIVES Verified 07/31/22 14:31 Dust Allergy Unknown HIVES Uncoded 07/31/22 14:31 Consultations 02/13/23 03:02 ED Decision to Admit Stat 02/13/23 03:42 Consult Oromaxillofacial Surgery Routine Ordered Studies 02/13/23 00:00 CT soft tissue neck w con Stat Hospital Course (1) Dental abscess: (2) Diabetes mellitus type 1: (3) Dyslipidemia: (4) Anxiety and depression: (5) Asthma: Plan Dental abscess Discharge on Clindamycin and Flagyl and follow up with either DR Corral or Sherry. Clindamycin, 300 mg, PO, Q6h x 7 days Metronidazole, 500 mg, PO, Q6h x 7 days -blood cultures, no growth in Aerobic or Anaerobic bottles after 24 hrs T1 Diabetes -Well controlled DM1 on insulin pump, last A1C 6.8% in 12/2022 -Patient continues to use her own Dexcom + insulin pump Anxiety/Depression -Continue bupropion/buspirone at home --> 300 mg, PO, AM/5 mg, PO, BID Dyslipidemia - continue atorvastatin, 40 mg, PO, nightly Asthma -Continue albuterol PRN Total Time Total Time Spent Total Time Spent (In Minutes): see attending attestation Discharge Plan Discharge Items Patient Disposition: Home - Self-Care Reason For Visit: DENTAL ABSCESS Discharge Diagnosis: s/p IV antibiotics for facial infection Condition on Discharge: Good Activity: Resume your previous activity Bathing: No limitations Exercise/Sports: Gradually increase as tolerated Driving/Machine Use: Resume 1 day after discharge Weightbearing: Full weightbearing Non-emergency contact: Surgeon Call non-emergency contact if: you have any medication questions, your temperature is above 101.5 and your wound has increased redness Follow-up/Referrals: Agustina Maciel DO [Primary Care Provider] - Ilya Corral, MIGUEL ANGEL [Physician] - Diet: Regular Diet Texture: Easy to Chew Addtl Attending Provider Instructions: ADDITIONAL ACTIVITY RECOMMENDATIONS: * Schroeder teeth after every meal. It is very important to keep your mouth clean to prevent infection. * Starting tonight rinse with the Peridex as directed then 2 x a day * it is very important to keep well hydrated, this prevents fever and swelling SPECIAL CARE INSTRUCTIONS: *It is not uncommon that between day 2-4 that your swelling will be at its worst this is very normal, do not be alarmed. * Please apply heat (hot water bottle or heating pad) for the next two days, as often as possible. * Tomorrow start rinsing your mouth with 1/2 teaspoon salt in 8 ounces warm water. This rinse should be used every 4-6 hours. * You may experience slight nausea. To prevent this, never take your medication on an empty stomach. If nauseated, take small sips of camden keri until you feel better; then you may start on applesauce and toast. * Some swelling is common. It should gradually decrease within 4-5 days. , call Dr Corral at [phone] * You may experience some discomfort for a few days. If pain or swelling increases, Call Dr Corral * Return to the office for a follow up check up on: Should see you to insure complete resolution of the infection in 7-10 days * office address--[address] phone # [phone] Pending Studies at Discharge: No Stand-Alone Forms: My [facility] [employer], Smoking Cessation Medications and DC Order Prescriptions: New clindamycin HCl 300 mg capsule 300 mg PO Q6H 7 Days Qty: 28 0RF metronidazole 500 mg tablet 500 mg PO Q6H 7 Days Qty: 28 0RF chlorhexidine gluconate [Peridex] 0.12 % mouthwash 15 ml buccal DAILY Qty: 120 0RF Continued (DME) OneTouch Verio test strips Strip See Rx Instructions .Route Qty: 100 3RF Rx Instructions: use to test 4 times daily (DME) OneTouch Verio test strips Strip See Rx Instructions .Route Qty: 200 5RF Rx Instructions: testing 4 times daily albuterol sulfate 90 mcg/actuation HFA aerosol inhaler 2 puff inhalation QID PRN (Reason: shortness of breath or wheezing) Qty: 8.5 0RF (DME) pen needle, diabetic [BD Ultra-Fine Guadalupe Pen Needle] 32 gauge x 5/32" needle See Rx Instructions .Route Qty: 100 1RF Rx Instructions: Using six needles daily (DME) Omnipod 5 G6 Intro Kit (Gen 5) Cartridge See Rx Instructions .Route Qty: 1 0RF Rx Instructions: change pod every 3 days; subq (DME) Omnipod 5 G6 Pods (Gen 5) Cartridge See Rx Instructions .Route Qty: 10 11RF Rx Instructions: change pod every 3 days; subq insulin glargine [Lantus Solostar U-100 Insulin] 100 unit/mL (3 mL) insulin pen 13 unit subcut BID 90 Days Qty: 25 1RF Rx Instructions: to replace insulin vial cholecalciferol (vitamin D3) 50 mcg (2,000 unit) capsule 100 mcg PO DAILY Qty: 30 0RF atorvastatin 40 mg tablet 40 mg PO DAILY Qty: 30 2RF (DME) lancets [OneTouch Delica Plus Lancet] 33 gauge misc See Rx Instructions .Route Qty: 100 3RF Rx Instructions: Testing blood sugar four times daily (DME) Dexcom G6 Transmitter Device See Rx Instructions .Route Qty: 1 3RF Rx Instructions: Change every 90 days Zyrtec 10 mg capsule 10 mg PO DAILY PRN (Reason: allergy symptoms) Qty: 90 2RF bupropion HCl [Wellbutrin XL] 300 mg tablet extended release 24 hr 300 mg PO QAM Qty: 30 2RF ondansetron HCl 8 mg tablet 8 mg PO Q8H PRN (Reason: nausea and vomiting) Qty: 10 0RF multivitamin Tablet 1 tab PO DAILY melatonin 10 mg capsule 10 mg PO HS PRN (Reason: Sleep) (DME) Ketostix Strip See Rx Instructions .ROUTE .MEDSUPPLY Qty: 25 0RF Rx Instructions: Check if blood sugars . 240 for 4 to 6 hours (DME) Dexcom G6 Sensor Device See Rx Instructions .Route Qty: 9 3RF Rx Instructions: Change every 10 days Baqsimi 3 mg/actuation spray,non-aerosol 3 mg intranasal ONCE Qty: 2 5RF insulin aspart U-100 [Novolog U-100 Insulin aspart] 100 unit/mL solution 67 unit subcut .COMPLEX Qty: 6 3RF Rx Instructions: 67 units subcutaneously ; via insulin pump; TDD 67 units; cyclobenzaprine 5 mg tablet 5 mg PO TID PRN (Reason: muscle spasm) Qty: 30 0RF buspirone 5 mg tablet 5 mg PO BID Qty: 60 2RF ketoconazole 2 % shampoo 1 applic topical .COMPLEX Qty: 120 1RF Rx Instructions: 1 applic topical to the scalp 2-3 times a week. Allow to sit on the scalp for 5 minutes before rinsing. methylprednisolone 4 mg tablets,dose pack 4 mg PO UD Discontinued metronidazole 500 mg tablet 500 mg PO Q8H 7 Days Qty: 21 0RF clindamycin HCl 300 mg capsule 300 mg PO Q6H 7 Days Qty: 14 0RF clindamycin HCl 300 mg capsule 300 mg PO QID Discharge Orders: Discharge Order (Routine); Ordered 02/14/23 Ordered By: Camacho Barber/Other Patient Handouts: Managing Type 1 Diabetes Admission Data Admit Date/Time: 02/13/23 03:42 Attending Provider: Liang Ferreira Admit Provider: Willis Hughes Primary Care Provider: Agustina Maciel Other Providers: Han Rocha; Paul Patterson Other Interventions: Discharge Summary Assessment (RN) Last Done: 02/14/23 10:37 Supervising Physician Co-Signing Physician Notes I personally examined the patient and verified all lewis points of history and e xam, discussed case, and agree with decision making with Dr Louis feeling better stomach better feels up to going home vitals noted pleasant nad heent nc at mmm breathing unlabored no accessory muscles dental infection - fortunately nothing drainable. abx, time - but safe for home, close outpt f/u otherwise as above
[2023-02-14] MEDS: buPROPion XL 300 MG TABCR PO SCH (08:57)
[2023-02-14] MEDS: ATORVASTATIN 40 MG TAB PO SCH (08:57)
[2023-02-14] MEDS: busPIRone 5 MG TAB PO SCH (08:57)
--- NOTE | 2023-02-14 18:25 | Billing Data ---
Date of Service February 14, 2023 Coding Level of Care Code 25551 IN/OBS DISCH 30 MIN/LESS
--- NOTE | 2023-02-14 19:45 | Electrocardiogram Report ---
Test Reason : Blood Pressure : / mmHG Vent. Rate : 089 BPM Atrial Rate : 089 BPM P-R Int : 146 ms QRS Dur : 074 ms QT Int : 352 ms P-R-T Axes : 057 038 028 degrees QTc Int : 428 ms Normal sinus rhythm Nonspecific T wave abnormality Abnormal ECG When compared with ECG of 29-OCT-2021 09:04, No significant change was found Confirmed by Hermilo Caldwell ([id number]) on 02/14/2023 7:45:08 PM Referred By: REFERRED SELF Confirmed By:Hermilo Caldwell
--- OUTSIDE RECORDS SUMMARY | 2023-02-16 17:57 | External Medical Summary | Summary of Care ---
Author Name Unknown Organization [facility] Address [address] [place] [address] Phone [phone] Care Team Providers Care Emergency Room Technician Name Role Phone Unavailable Primary Care Provider Unavailabl e Encounter Details Date Type Department Care Team Description 11/25/2022 Orders Only Outcomes Research Department [address] [place] [address] Rosita Kimball CHRA [employer] Other*[id number] Allergies Active Allergy Reactions Severity Noted Date Comments Ciprofloxacin Hives 09/11/2016 Fish Allergy Edema Other 12/31/2015 Latex 05/28/2011 Red, irritation, itchy Penicillins Edema airway High 03/24/2016 Shellfish Allergy Edema Other 12/31/2015 documented as of this encounter (statuses as of 11/25/2022) Medications Medication Sig Dispensed Refills Start Date End Date Status VENTOLIN HFA 108 (90 BASE) MCG/ACT IN AERSIndications:Asth ma, moderate persistent USE TWO PUFFS EVERY FOUR HOURS NEEDED FOR WHEEZING 18 g 2 06/14/2013 Active SYMBICORT 80-4.5 MCG/ACT IN AEROIndications:Asth ma, moderate persistent 2 INHALATIONS TWICE A DAILY 1 Inhaler 5 06/14/2013 Active Glucose Blood (ONETOUCH VERIO) STRP Test blood sugar four times daily 100 Strip 09/01/2019 Active OneTouch Delica Lancets 33G MISC Test blood sugar four times daily 100 Each 09/01/2019 Active Citalopram Hydrobromide 20 MG Oral Tablet (CeleXA)Indications: Anxiety TAKE ONE TABLET BY MOUTH AT BEDTIME 30 Tab 5 07/02/2020 Active Citalopram Hydrobromide 10 MG Oral Tablet (CeleXA)Indications: Anxiety TAKE ONE TABLET BY MOUTH AT BEDTIME 30 Tab 5 07/02/2020 Active BD Pen Needle Guadalupe U/F 32G X 4 MM (Insulin Pen Needle)Indications:T ype 2 diabetes mellitus with hemoglobin A1c goal of less than 7.0% (HCC) use with insulin 4 times daily 400 Each 2 09/02/2021 Active HumaLOG KwikPen 100 UNIT/ML Subcutaneous Solution Pen-injector (Insulin Lispro (1 Unit Dial))Indications:Ty pe 2 diabetes mellitus with hemoglobin A1c goal of less than 7.0% (HCC) inject under the skin 5 units 3 times a day before meals. please call and make an appointment with primary care provider. 15 mL 0 09/05/2021 Active metFORMIN HCl 1000 MG Oral Tablet (Glucophage)Indicati ons:Type 2 diabetes mellitus with hemoglobin A1c goal of less than 7.0% (HCC) TAKE 1 TABLET 2 TIMES A DAY WITH MORNING AND EVENING MEALS. 60 Tablet 0 10/13/2021 Active Lantus SoloStar 100 UNIT/ML Subcutaneous Solution Pen-injector (Insulin Glargine Solostar)Indications :Type 2 diabetes mellitus with hemoglobin A1c goal of less than 7.0% (HCC) inject 18 units under the skin daily 15 mL 0 11/26/2021 Active documented as of this encounter (statuses as of 11/25/2022) Active Problems Problem Noted Date Type 2 diabetes mellitus with hemoglobin A1c goal of less than 7.0% 06/11/2017 Advanced directives, counseling/discussi on 04/20/2016 Overview: No, Advance Directive brochure offered, patient declined. Anxiety 08/19/2015 H/O compression fracture of spine 2015 Chronic migraine without aura without st atus migrainosus, not intractable 02/11/2015 Polyp, nasal sinus 01/28/2012 Mixed rhinitis 01/28/2012 Adverse food reaction 01/28/2012 Overview: Shrimp, whitefish, tuna - intense nausea and vomiting Mild persistent asthma without complicat ion 01/15/2011 documented as of this encounter (statuses as of 11/25/2022) Resolved Problems Problem Noted Date Resolved Date Carrier of group B Streptococcus 08/07/2016 10/08/2016 Overview: + GBS RV cx GDM (gestational diabetes mellitus) 06/22/2016 08/26/2016 Overview: 1hr gtt > 200. Nutrition consult Check BS QID Placenta previa antepartum in second trimester 1 05/25/2015 10/08/2016 Overview: Resolved on sono 04/20/16 1. Recommend pelvic rest for any previa that is experiencing vaginal bleeding or that persists beyond 32 weeks. 2. Maternal Medicine re-evaluation of placental position with transvaginal ultrasound does NOT need to be performed again until 28-32 weeks (unless condenser operator suspects it has resolved earlier during a trans-abdominal scan).If previa still persists at 32 weeks, then recommend Maternal Medicine re-evaluation with Transvaginal sonogram again at 35-36 weeks. 3. Recommend delivery for ALL previas (or low-lying placentas within 1cm of cervical os) between 36w0d to 37w6d without amniocentesis. Need for rhogam due to Rh negative mother 201508/26/2016 Overview: Rhogam candidate Rhogam administered 06/08/2016 Sweetie Love RN Other normal , not first 12/31/2015 08/26/2016 Overview: Tdap vaccine administered 06/22/2016 Sweetie Love RN Adjustment disorder with anxiety 12/31/2015 08/26/2016 Overview: On zoloft Current with history of labor 12/31/2015 08/26/2016 Overview: labor with first , states she was sent to [facility] for a few days then home on bedrest. Delivered at 40w3d. [facility] referral placed.- Shortened cervix NOT seen at [facility] 1. For patients with NO prior history of PTD and transvaginal cervical length of 20mm or less at less than 24 weeks, we recommend vaginal progesterone administration with either 200mg micronized progesterone capsule (Prometrium) or 90mg progesterone gel (Crinone) per vagina daily until rupture of membranes or 36w6d. We reviewed that vaginal progesterone has been associated with approximately a 46-50% decrease in delivery < 33-34 weeks, as well as decreased morbidity and mortality. 2. There is no evidence supporting activity restriction/bedrest for prevention of PTD; in fact, in asymptomatic women with lin gestations and TVUCL < 30 mm, it has been shown to increase PTD. Vertebral fracture, pathological 05/11/2008 02/11/2015 ABN CERVIX NEC-ANTEPART 07/27/2003 02/12/20 15 Normal , first 07/27/2003 01/28/20 12 NONE 05/22/2003 01/28/2012 documented as of this encounter (statuses as of 11/25/2022) Immunizations Name Administration Dates Next Due Pneumococcal Polysaccharide PPV23 (Pneumovax) Seasonal Influenza, Split, IIV3, With Preserve, Inj 01/15/2011 TDAP (age 10 and older)(Boostrix) 06/22/2016, documented as of this encounter Social History Tobacco Use Types Packs/Day Years Used Date Smoking Tobacco: Former Cigarettes 0.5 8 Q uit: 02/18/2011 Smokeless Tobacco: Never Comments:no passive smoke cu rrently Alcohol Use Standard Drinks/Week Comments No 0 (1 standard drink = 0.6 oz pur e alcohol) denies ETOH use 2016 Food Insecurity Answer Date Recorded Within the past 12 months, y ou worried that your food would run out before you got money to buy more. Never true 12/04/2019 Within the past 12 months, t he food you bought just didn't last and you didn't have money to get more. Never true 12/04/2019 Sex Assigned at Date Recorded Not on file Job Start Date Occupation Industry Not on file Not on file Not on file documented as of this encounter Plan of Treatment Scheduled Orders Name Type Priority Associated Diagnoses Orde r Schedule MYCODE SUBSEQUENT ADULT Lab Routine [employer] Other*[id number] Every 6 Months for 2 Occurrences starting 11/25/2022 until 12/15/2023 Health Maintenance Due Date Last Done Comments COVID-19 Vaccine (#1) 1985 Hepatitis C Screening 2003 HPV/Co-Test 2015 Cervical Cancer Screening 01/15/2017 Pap Smear 01/15/2017 01/15/2014, 01/03, 12/04/2010 (Done elsewhere), Additional history exists GFR 08/30/2020 08/31/2019, 09/2017, 06/06/2017, Additional history exists Pneumococcal Vaccine: Pediatrics (0 to 5 Years) and At-Risk Patients (6 to 64 Years) (2 - PCV) 08/30/2020 08/31/2019 DIABETES-EYE EXAM 09/26/2020 09/27/2019, 08/31/2019 DIABETES-FOOT EXAM 12/03/2020 12/04/2019 Depression Screening, Annual for Pts 12 and Over 12/03/2020 12/04/2019 HbA1c 02/16/2021 08/16/2020, 11/04, 08/31/2019, Additional history exists Albumin/Creatinine Ratio 08/16/2021 08/16/2020, 08/04 B-12 08/16/2021 08/16/2020, 08/31/2019 Influenza Vaccine (FLU shot) (#1) 2022 01/15/2011 DTaP,Tdap,and Td Vaccines (7 - Td or Tdap) 06/22/2026 06/22/2016, 08/19/2015, 11/21/1998, Additional history exists Hepatitis B Completed 11/25/1993, 04/06, 03/25/1993 GARDASIL-HPV IMMUNIZATION SERIES Aged Out No longer eligible based on patient's age to complete this topic MENINGOCOCCAL (MENACTRA/MENVEO) Aged Out No longer eligible based on patient's age to complete this topic documented as of this encounter Medical Devices Not on filedocumented as of this encounter Visit Diagnoses Diagnosis [employer] [facility] Other*[id number] documented in this encounter
== END 2023-02-14 12:31 | disposition home or self-care (01) | DRG 159 ==
LOC: ED 19:03 → EDINP 02-13 03:42 → SUATTDRO 02-13 03:42 → 3W 02-13 15:19